=== PATIENT | female | born 1965 | race Caucasian/White ===

== ENCOUNTER 2021-04-19 17:45 | Outpatient (CLI) | payer OTHER, SELFPAY ==
[2021-04-19 18:15] LABS: Basophils Absolute Auto 0.07 K/mm3 (0.00-0.10); Basophils Percent Auto 0.6 % (0.0-1.0); Eosinophils Absolute Auto 0.35 K/mm3 (0.02-0.50); Eosinophils Percent Auto 2.8 % (1.0-6.0); Hematocrit 41.3 % (35.0-49.0); Immature Granulocyte Absolute 0.06 K/mm3 (0.00-0.00); Immature Granulocyte Percent A 0.5 % (0.0-0.0); Lymphocytes Absolute Auto 2.54 K/mm3 (1.10-4.50); Lymphocytes Percent Auto 20.7 % (18.0-42.0); Mean Corpuscular HGB Conc 31.5 g/dL (32.0-36.0); Mean Corpuscular Hemoglobin 30.4 pg (27.0-31.0); Mean Corpuscular Volume 96.5 fL (78.0-102.0); Mean Platelet Volume 10.6 fl (9.2-11.8); Monocytes Absolute Auto 0.68 K/mm3 (0.10-0.90); Monocytes Percent Auto 5.5 % (2.0-11.0); Neutrophils Absolute Auto 8.6 K/mm3 (1.7-7.2); Neutrophils Percent Auto 69.9 % (50.0-70.0); Platelet Count Result 234 K/mm3 (150-420); Red Blood Count 4.28 M/mm3 (4.20-5.40); Red Cell Distribution Width 14.1 % (11.6-14.4); White Blood Count 12.3 K/mm3 (4.8-10.8)
--- NOTE | 2021-04-19 18:28 | ECG_ITS ---
Measurements Intervals [place] Rate: 83 P: 57 [place]: 159 QRS: 24 QRSD: 88 T: 45 QT: 367 QTc: 433 Interpretive Statements SINUS RHYTHM NONSPECIFIC T-WAVE ABNORMALITY NO PREVIOUS ECG AVAILABLE FOR COMPARISON Electronically Signed On 04-20-2021 13:15:54 CDT by Jaquelin Jacobsen M.D.
[2021-04-19 18:30] LABS: Add Urine Microscopic? YES; Appearance Urine Clear (Clear); Bilirubin Urine Negative (Negative); Blood Urine Negative (Negative); Color Urine Light Yellow (Yellow); Glucose Urine UA Negative (Negative); Ketones Urine Trace (Negative); Leukocyte Esterase Ur Negative LEU/UL (Negative); Nitrate Urine Negative (Negative); Protein Urine Negative (Negative)
[2021-04-19 18:37] LABS: Amorphous Sediment Urine Few; RBC Urine 0-2 /hpf (0-2); Squamous Epithelial Cell Urine Few /hpf (Few); WBC Urine 0-3 /hpf (0-3)
[2021-04-19 18:38] LABS: Bacteria Urine 1+ /hpf
[2021-04-19 19:05] LABS: Alanine Aminotransferase 24 U/L (14-59); Albumin Level 3.4 g/dL (3.4-5.0); Alkaline Phosphatase 106 U/L (46-116); Anion Gap 9 mmol/L (8-16); Aspartate Amino Transferase 13 U/L (15-37); Bilirubin,Total 0.1 mg/dL (0.00-1.00); Blood Urea Nitrogen 22 mg/dL (7-18); CRP 0.8 mg/dL (0.0-0.9); Calcium 8.8 mg/dL (8.5-10.1); Carbon Dioxide 27 mmol/L (21-32); Chloride 103 mmol/L (98-108); Estimated Glomerular Filt Rate 33; Glucose 116 mg/dL (70-99); Osmolality Calculated 292 mOsm/kg (285-295); Potassium 4.2 mmol/L (3.5-5.1); Sodium 139 mmol/L (136-145); Total Protein 6.7 g/dL (6.4-8.2)
[2021-04-19 19:25] LABS: Erythrocyte Sedimentation Rate 38 mm/hr (0-20)
== END 2021-04-19 17:46 | disposition home or self-care (01) ==
PROVIDERS: PCP Family Medicine
DX: Z01.818 Encounter for other preprocedural examination (principal)
CPT/HCPCS: 36415; 80053; 81001; 85025; 85652; 86140; 93005

== ENCOUNTER 2021-04-25 17:45 | Outpatient (CLI) | payer OTHER, SELFPAY ==
[2021-04-25 18:02] LABS: Basophils Absolute Auto 0.07 K/mm3 (0.00-0.10); Basophils Percent Auto 0.6 % (0.0-1.0); Eosinophils Absolute Auto 0.32 K/mm3 (0.02-0.50); Eosinophils Percent Auto 2.8 % (1.0-6.0); Hematocrit 41.2 % (35.0-49.0); Hemoglobin 13.2 g/dL (12.0-15.0); Immature Granulocyte Absolute 0.03 K/mm3 (0.00-0.00); Immature Granulocyte Percent A 0.3 % (0.0-0.0); Lymphocytes Absolute Auto 3.04 K/mm3 (1.10-4.50); Mean Corpuscular Volume 96.7 fL (78.0-102.0); Mean Platelet Volume 10.1 fl (9.2-11.8); Monocytes Absolute Auto 0.78 K/mm3 (0.10-0.90); Monocytes Percent Auto 6.9 % (2.0-11.0); Neutrophils Percent Auto 62.4 % (50.0-70.0); Platelet Count Result 221 K/mm3 (150-420); Red Blood Count 4.26 M/mm3 (4.20-5.40); Red Cell Distribution Width 14.2 % (11.6-14.4); White Blood Count 11.2 K/mm3 (4.8-10.8)
== END 2021-04-25 17:46 | disposition home or self-care (01) ==
LOC: CHSLAB 17:48
PROVIDERS: PCP Family Medicine
DX: D72.829 Elevated white blood cell count, unspecified (principal)
CPT/HCPCS: 36415; 85025

== ENCOUNTER 2021-07-11 17:50 | Emergency (ER) | payer BC, SELFPAY ==
--- NOTE | 2021-07-11 18:18 | ED.LOWEXIN ---
HPI - Extremity Injury (Lower) General Chief Complaint: Extremity Problem,Nontraumatic Stated Complaint: swelling in LT foot Time Seen by Provider: 07/11/21 18:18 Source: patient Mode of arrival: ambulatory History of Present Illness HPI Narrative: 55-year-old, smoker with a history numbness and tingling of left lower extremity, Fibromyalgia, chronic low back pain status post spinal cord nerve stimulator presents to the ER with -- left lower foot numbness/tingling /swelling. she has had this off and on for months. No relief with Lyrica or gabapentin. -- Left lower foot pain /calf pain worse on walking. -- Patient is having difficulty ambulating. no recent injury. Injury: Left: foot Relieving factors: nothing Exacerbating factors: movement Other symptoms: none Related Data Home Medications Medication Instructions Recorded Confirmed Adult Low Dose Aspirin 81 mg DAILY 07/11/21 07/11/21 Zoloft 100 mg HS 07/11/21 07/11/21 celecoxib 400 mg capsule 1 cap DAILY 07/11/21 07/11/21 lisinopril 07/11/21 metoprolol tartrate 20 mg BID 07/11/21 07/11/21 pantoprazole 07/11/21 Allergies Allergy/AdvReac Type Severity Reaction Status Date / Time No Known Allergies Allergy Verified 07/11/21 18:23 Review of Systems Review of Systems: All systems reviewed & are unremarkable except as noted in HPI and below Constitutional: Constitutional: Reports as per HPI and Reports no additional constitutional complaints Eyes: Eyes: Reports as per HPI and Reports no additional eye complaints ENT: Reports system reviewed and no additional complaints, except as documented and Reports as per HPI Cardiovascular: Cardiovascular: Reports as per HPI and Reports no additional cardiovascular complaints Respiratory: Respiratory: Reports as per HPI and Reports no additional respiratory complaints Gastrointestinal: Gastrointestinal: Reports as per HPI and Reports no additional gastrointestinal complaints Genitourinary: Genitourinary: Reports no additional female genitourinary complaints and Reports as per HPI Musculoskeletal: Musculoskeletal: Reports no additional musculoskeletal complaints, Reports as per HPI and Reports back pain Comments: Chronic low back pain status post nerve stimulator Integumentary/Breasts: Skin/Breast: Reports system reviewed and no additional complaints, except as docu and Reports as per HPI Neurologic: Reports system reviewed and no additional complaints, except as documented and Reports as per HPI Psychiatric: Psychiatric: Reports no additional psychiatric complaints and Reports as per HPI Endocrine: Endocrine: Reports no additional endocrine complaints and Reports as per HPI [facility] Social History Social History (Updated 07/11/21 @ 18:49 by Kilo Bhatia MD) Social History: smoker Exam Const: General: healthy appearing and no acute distress Nutritional Appearance: well nourished and obese Orientation/consciousness: patient oriented x3 Limitations: no limitations HENMT: Head: normal to inspection Ears: external ears normal General nose exam: Normal external nose present Face and sinus: normal facial exam Mouth: Yes Normal oral and palatal mucosa present Throat: posterior oropharynx normal Eyes: Conjunctivae: conjunctivae normal Pupils: Equal, round and reactive pupils present EOM: EOMs intact bilaterally Neck: Neck: normal visual inspection, no lymphadenopathy and no meningeal signs Chest: Chest palpation & inspection: normal inspection of the chest Resp: Effort & Inspection: normal respiratory effort Auscultation: clear to auscultation bilaterally Cardio: Rate: regular rate Rhythm: regular rhythm GI: GI Palp: Yes Soft to palpation Other: no tenderness/ rigidity /rebound. : General: Yes bladder normal to palpation Back/Spine/Pelvis: Back: no CVA tenderness Skin: General skin exam: normal color Other: Left leg toes are erythematous and hypersensitive on touching. Do
[2021-07-11 18:33] VITALS: BP 153/86; PULSE 86; RESP 18; TEMP 36.3; O2SAT 97
[2021-07-11 19:11] VITALS: BP 144/85; PULSE 73; RESP 16; TEMP 36.3; O2SAT 95
== END 2021-07-11 19:13 | disposition home or self-care (01) ==
PROVIDERS: Emergency Provider Internal Medicine Critical Care Medicine; PCP Family Medicine
DX: G62.9 Polyneuropathy, unspecified (principal); I73.9 Peripheral vascular disease, unspecified
CPT/HCPCS: 99281

== ENCOUNTER 2021-07-23 21:21 | Emergency (ER) | payer BC, SELFPAY ==
[2021-07-23 21:44] VITALS: BP 148/93; PULSE 102; RESP 20; TEMP 37; O2SAT 96
--- NOTE | 2021-07-23 21:48 | ED.EAR ---
HPI - Ear Problem General Chief complaint: Ear Stated complaint: ear pain/jaw swollen Source: patient Mode of arrival: ambulatory Limitations: no limitations History of Present Illness HPI Narrative: this is a 55-year-old female with some right ear pain was seen at urgent care and started on antibiotics this is last day of her antibiotics and the patient states that she is continuing to have pain and discomfort in her right ear with some sinus congestion and pressure with some history of diabetes currently controlled with diet. Patient has no fever chills no shortness of breath no chest pain patient is edentulous and numbness or gums or sore throat. Complaint: ear pain Location: right ear Duration: constant Severity: moderate Relieving factors: nothing Related Data Home Medications Medication Instructions Recorded Confirmed Adult Low Dose Aspirin 81 mg PO DAILY 07/11/21 07/23/21 Zoloft 100 mg PO HS 07/11/21 07/23/21 lisinopril 20 mg PO DAILY 07/11/21 07/23/21 metoprolol tartrate 20 mg PO BID 07/11/21 07/23/21 pantoprazole 40 mg PO DAILY 07/11/21 07/23/21 amoxicillin 500 mg capsule 1 cap PO TID 07/23/21 07/23/21 Allergies Allergy/AdvReac Type Severity Reaction Status Date / Time No Known Allergies Allergy Verified 07/11/21 18:23 Review of Systems Review of Systems: All systems reviewed & are unremarkable except as noted in HPI and below PMFSH Past Medical History Medical History Diabetes mellitus Hypertension Peripheral neuropathy Social History Social History Social History: smoker Exam Const: General: healthy appearing and no acute distress HENMT: Head: normal to inspection Ears: external ears normal General nose exam: Normal external nose present Other: Right ear pain with redness with sinus congestion and pressure in the right frontal sinus area Eyes: Conjunctivae: conjunctivae normal Pupils: Equal, round and reactive pupils present EOM: EOMs intact bilaterally Neck: Neck: normal visual inspection Chest: Chest palpation & inspection: normal inspection of the chest Resp: Effort & Inspection: normal respiratory effort Auscultation: clear to auscultation bilaterally Cardio: Rate: regular rate Rhythm: regular rhythm GI: Auscultation: normal bowel sounds : General: Yes bladder normal to palpation Back/Spine/Pelvis: Back: no CVA tenderness Cervical Spine: collar present Skin: General skin exam: normal color Rashes: no rashes Neuro: General: patient oriented x3, moves all extremities, no meningeal signs and no focal motor deficits Psych: Mental Status: mental status grossly normal Course Course Emergency Course: patient received a dose of IM ceftriaxone, and antibiotics were sent to the patient's pharmacy. Vital Signs Vital signs: Vital Signs Temperature 37.0 C 07/23/21 21:44 Pulse Rate 102 H 07/23/21 21:44 Respiratory Rate 20 07/23/21 21:44 Blood Pressure 148/93 H 07/23/21 21:44 Pulse Oximetry 96 07/23/21 21:44 Oxygen Delivery Room Air 07/23/21 21:44 Temperature 37.0 C 07/23/21 21:44 Pulse Rate 102 H 07/23/21 21:44 Respiratory Rate 20 07/23/21 21:44 Blood Pressure 148/93 H 07/23/21 21:44 Pulse Oximetry 96 07/23/21 21:44 Oxygen Delivery Room Air 07/23/21 21:44 Medical Decision Making Vital Signs Vital Signs: Vital Signs Temperature 37.0 C 07/23/21 21:44 Pulse Rate 102 H 07/23/21 21:44 Respiratory Rate 20 07/23/21 21:44 Blood Pressure 148/93 H 07/23/21 21:44 Pulse Oximetry 96 07/23/21 21:44 Oxygen Delivery Room Air 07/23/21 21:44 Temperature 37.0 C 07/23/21 21:44 Pulse Rate 102 H 07/23/21 21:44 Respiratory Rate 20 07/23/21 21:44 Blood Pressure 148/93 H 07/23/21 21:44 Pulse Oximetry 96 07/23/21 21:44 Oxygen Delivery Room Air 07/23/21 21:44 Critical Care T
[2021-07-23] MEDS: cefTRIAXone 1 GM, LIDOCAINE HCL 1% LOCAL INJ 2.1 ML IM (22:04)
[2021-07-23] MEDS: KETOROLAC 10 MG TABLET PO (22:08)
[2021-07-23 22:11] VITALS: BP 140/85; PULSE 90; RESP 20; O2SAT 97
== END 2021-07-23 22:25 | disposition home or self-care (01) ==
PROVIDERS: Emergency Provider Emergency Medicine; PCP Family Medicine
DX: H66.90 Otitis media, unspecified, unspecified ear (principal); J01.10 Acute frontal sinusitis, unspecified
CPT/HCPCS: 96372; 99283; A9270; J0696

== ENCOUNTER 2021-10-16 12:48 | Emergency (ER) | payer BC, OTHER, SELFPAY ==
--- NOTE | ~2021-10-16 | XR_ITS ---
XR foot LT min 3V DATE: 10/16/2021 13:46 INDICATION: Pain and numbness of left foot for 3 weeks. TECHNIQUE: 4 views COMPARISON: None FINDINGS: There is osteoarthritis at the tibiotalar joint. There is mild osteoarthritis at the first metatarsophalangeal joint. There is prominent plantar and posterior calcaneal enthesopathy. No fracture or dislocation, periosteal reaction or bone destruction. 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
[2021-10-16 13:10] VITALS: BP 152/90; PULSE 72; RESP 18; TEMP 36.4; O2SAT 98
--- NOTE | 2021-10-16 13:45 | ECG_ITS ---
Measurements Intervals [place] Rate: 66 P: 59 [place]: 155 QRS: 21 QRSD: 86 T: 42 QT: 388 QTc: 407 Interpretive Statements SINUS RHYTHM NORMAL ECG COMPARED TO ECG 04/19/2021 18:28:04 NO SIGNIFICANT CHANGES Electronically Signed On 10-17-2021 7:12:09 CDT by Dano Meza D.O.
[2021-10-16] MEDS: SODIUM CHLORIDE 0.9% IV 500 ML 999 ML IV CONT (13:53)
[2021-10-16] MEDS: KETOROLAC (*BKC) 60 MG/2 ML VIAL IM (13:55)
[2021-10-16] MEDS: ASPIRIN 325 MG ENTERIC TABLET PO (13:56)
[2021-10-16 14:06] LABS: Basophils Absolute Auto 0.11 K/mm3 (0.00-0.10); Eosinophils Absolute Auto 0.51 K/mm3 (0.02-0.50); Eosinophils Percent Auto 4.8 % (1.0-6.0); Hemoglobin 13.2 g/dL (12.0-15.0); Immature Granulocyte Absolute 0.05 K/mm3 (0.00-0.00); Immature Granulocyte Percent A 0.5 % (0.0-0.0); Lymphocytes Absolute Auto 2.92 K/mm3 (1.10-4.50); Lymphocytes Percent Auto 27.7 % (18.0-42.0); Mean Corpuscular HGB Conc 31.4 g/dL (32.0-36.0); Mean Corpuscular Hemoglobin 29.1 pg (27.0-31.0); Mean Corpuscular Volume 92.7 fL (78.0-102.0); Mean Platelet Volume 10.1 fl (9.2-11.8); Monocytes Absolute Auto 0.79 K/mm3 (0.10-0.90); Monocytes Percent Auto 7.5 % (2.0-11.0); Neutrophils Absolute Auto 6.2 K/mm3 (1.7-7.2); Neutrophils Percent Auto 58.5 % (50.0-70.0); Platelet Count Result 224 K/mm3 (150-420); Red Blood Count 4.53 M/mm3 (4.20-5.40); Red Cell Distribution Width 14.8 % (11.6-14.4); White Blood Count 10.5 K/mm3 (4.8-10.8)
[2021-10-16 14:10] VITALS: BP 140/77; PULSE 62; RESP 16; O2SAT 97
[2021-10-16 14:23] LABS: Alanine Aminotransferase 23 U/L (14-59); Albumin Level 3.2 g/dL (3.4-5.0); Alkaline Phosphatase 107 U/L (46-116); Anion Gap 7 mmol/L (8-16); Aspartate Amino Transferase 16 U/L (15-37); Bilirubin,Total 0.3 mg/dL (0.00-1.00); Blood Urea Nitrogen 12 mg/dL (7-18); Calcium 8.9 mg/dL (8.5-10.1); Carbon Dioxide 27 mmol/L (21-32); Chloride 104 mmol/L (98-108); Estimated CRCL calculation 58 ml/min; Estimated Glomerular Filt Rate 52; Glucose 111 mg/dL (70-99); Osmolality Calculated 286 mOsm/kg (285-295); Potassium 3.7 mmol/L (3.5-5.1); Sodium 138 mmol/L (136-145); Total Protein 6.9 g/dL (6.4-8.2)
[2021-10-16 14:28] LABS: Lactic Acid Reflex 0.8 mmol/L (0.4-2.0)
[2021-10-16 15:10] VITALS: BP 148/61; PULSE 88; RESP 18; TEMP 36.1; O2SAT 99
[2021-10-16 16:30] VITALS: BP 136/84; PULSE 68; RESP 14; O2SAT 98
--- NOTE | 2021-10-16 17:23 | ED.LOWEXIN ---
HPI - Extremity Injury (Lower) General Chief Complaint: Extremity Injury, Lower Stated Complaint: L foot pain Time Seen by Provider: 10/16/21 12:52 Source: patient and RN notes reviewed Mode of arrival: ambulatory Limitations: no limitations History of Present Illness MD complaint: other (left great toe discolored with minimal drainage) Onset (ago): week(s) (1) Injury: Left: toes Type of Injury: other (no acute injury) Place: home Severity: moderate Severity scale (1-10): 6 Relieving factors: nothing Exacerbating factors: nothing Associated symptoms: swelling Other symptoms: none Related Data Home Medications Medication Instructions Recorded Confirmed Adult Low Dose Aspirin 81 mg PO DAILY 07/11/21 10/16/21 Zoloft 100 mg PO HS 07/11/21 10/16/21 lisinopril 20 mg PO DAILY 07/11/21 10/16/21 metoprolol tartrate 20 mg PO BID 07/11/21 10/16/21 pantoprazole 40 mg PO DAILY 07/11/21 10/16/21 celecoxib 400 mg capsule 400 mg PO DAILY 10/16/21 10/16/21 gabapentin 300 mg capsule 300 mg PO BID 10/16/21 10/16/21 Allergies Allergy/AdvReac Type Severity Reaction Status Date / Time No Known Allergies Allergy Verified 10/16/21 13:17 Review of Systems Review of Systems: All systems reviewed & are unremarkable except as noted in HPI and below Constitutional: Constitutional: Reports no additional constitutional complaints Eyes: Eyes: Reports no additional eye complaints ENT: Reports system reviewed and no additional complaints, except as documented Cardiovascular: Cardiovascular: Reports no additional cardiovascular complaints Respiratory: Respiratory: Reports no additional respiratory complaints Gastrointestinal: Gastrointestinal: Reports no additional gastrointestinal complaints Genitourinary: Genitourinary: Reports no additional female genitourinary complaints Musculoskeletal: Musculoskeletal: Reports arthralgias Comments: great toe discoloration and swelling Integumentary/Breasts: Skin/Breast: Reports system reviewed and no additional complaints, except as docu Neurologic: Reports system reviewed and no additional complaints, except as documented Psychiatric: Psychiatric: Reports no additional psychiatric complaints Endocrine: Endocrine: Reports no additional endocrine complaints Hematologic/Lymphatic: Hematologic/Lymphatic: Reports no additional hematologic/lymphatic complaints Allergic/Immunologic: Allergic/Immunologic: Reports no additional allergic/immunologic complaints PMFSH Past Medical History Medical History Diabetes mellitus Hypertension Infection of toe Peripheral neuropathy Social History Social History Social History: smoker Exam Const: General: no acute distress Nutritional Appearance: well nourished Orientation/consciousness: patient oriented x3 Limitations: no limitations HENMT: Head: normal to inspection Ears: external ears normal, TM's normal bilaterally and EAC's normal General nose exam: Normal external nose present and Normal nares present Face and sinus: normal facial exam and sinuses nontender Mouth: Yes Normal oral and palatal mucosa present and Yes moist mucous membranes Teeth and gingiva: dentition normal Throat: posterior oropharynx normal Eyes: Conjunctivae: conjunctivae normal Pupils: Equal, round and reactive pupils present EOM: EOMs intact bilaterally Neck: Neck: normal visual inspection, no lymphadenopathy and no meningeal signs Chest: Chest palpation & inspection: normal inspection of the chest Resp: Effort & Inspection: normal respiratory effort Auscultation: clear to auscultation bilaterally Cardio: Rate: regular rate Rhythm: regular rhythm GI: GI Palp: Yes Soft to palpation and No Tenderness to palpation present (GI) Auscultation: normal bowel sounds : General: Yes bladder normal to palpation and Yes no CVA tenderness Bimanual exam- v
[2021-10-16] MEDS: HEPARIN SODIUM 5,000 UNITS/ML VIAL 4000 UNITS IV PUSH (17:34)
[2021-10-16 17:49] LABS: INR 0.9; Partial Thromboplastin Time 29.2 SEC (23.90-30.70); Prothrombin Time 10.3 Seconds (9.50-12.10)
[2021-10-16] MEDS: HEPARIN SOD/D5W 100 UNITS/ML 25,000 UNITS/250 ML BAG 13 UNITS IV CONT (17:55)
[2021-10-16 18:07] VITALS: BP 145/70; PULSE 69; RESP 16; TEMP 36.4; O2SAT 98
== END 2021-10-16 18:45 | disposition short-term general hospital (02) ==
PROVIDERS: Emergency Provider Emergency Medicine; PCP Family Medicine
DX: G62.9 Polyneuropathy, unspecified (principal); R23.0 Cyanosis
CPT/HCPCS: 36415; 73630; 80053; 83605; 85025; 85610; 85730; 93005; 96365; 96367; 96372; 99285; A9270; J0696; J1644; J1885; J7040

== ENCOUNTER 2022-07-27 09:03 | Emergency (ER) | payer BC, SELFPAY ==
--- NOTE | ~2022-07-27 | US_ITS ---
EXAMINATION:US venous doppler LE RT INDICATION:Status post right femoral-popliteal bypass 6 days ago. Right leg redness, warmth and swell ing. TECHNIQUE: Multiple grayscale, color flow and Doppler images of the right lower extremity deep venous systems were obtained and reviewed. COMPARISON:No prior studies for comparison. FINDINGS: The common femoral, superficial femoral and popliteal veins demonstrate normal respiratory variation, augmentation and compressibility. Color flow is also seen within the posterior tibial, pe roneal, greater saphenous and profunda veins. Mildly prominent lymph nodes of the right groin, larges t measuring 2.2 cm, likely reactive. IMPRESSION: 1: No lower extremity deep venous thrombosis. Reviewed, dictated and finalized at location L.
[2022-07-27 09:04] VITALS: BP 158/73; PULSE 106; TEMP 36.4; O2SAT 97
[2022-07-27 09:49] LABS: Basophils Absolute Auto 0.08 K/mm3 (0.00-0.10); Basophils Percent Auto 0.9 % (0.0-1.0); Eosinophils Absolute Auto 0.43 K/mm3 (0.02-0.50); Eosinophils Percent Auto 4.7 % (1.0-6.0); Hematocrit 33.8 % (35.0-49.0); Hemoglobin 10.3 g/dL (12.0-15.0); Immature Granulocyte Absolute 0.14 K/mm3 (0.00-0.00); Immature Granulocyte Percent A 1.5 % (0.0-0.0); Lymphocytes Absolute Auto 1.16 K/mm3 (1.10-4.50); Lymphocytes Percent Auto 12.8 % (18.0-42.0); Mean Corpuscular HGB Conc 30.5 g/dL (32.0-36.0); Mean Corpuscular Hemoglobin 28.9 pg (27.0-31.0); Mean Corpuscular Volume 94.9 fL (78.0-102.0); Mean Platelet Volume 10.2 fl (9.2-11.8); Monocytes Absolute Auto 0.67 K/mm3 (0.10-0.90); Monocytes Percent Auto 7.4 % (2.0-11.0); Neutrophils Absolute Auto 6.6 K/mm3 (1.7-7.2); Neutrophils Percent Auto 72.7 % (50.0-70.0); Platelet Count Result 265 K/mm3 (150-420); Red Blood Count 3.56 M/mm3 (4.20-5.40); Red Cell Distribution Width 14.5 % (11.6-14.4); White Blood Count 9.1 K/mm3 (4.8-10.8)
[2022-07-27 10:04] LABS: INR 0.9; Partial Thromboplastin Time 29.6 SEC (23.90-30.70); Prothrombin Time 9.7 Seconds (9.50-12.10)
[2022-07-27 10:05] LABS: Alanine Aminotransferase 47 U/L (14-59); Albumin Level 2.6 g/dL (3.4-5.0); Alkaline Phosphatase 162 U/L (46-116); Anion Gap 10 mmol/L (8-16); Aspartate Amino Transferase 47 U/L (15-37); Bilirubin,Total 0.3 mg/dL (0.00-1.00); Blood Urea Nitrogen 15 mg/dL (7-18); CRP 7.9 mg/dL (0.0-0.9); Calcium 8.8 mg/dL (8.5-10.1); Carbon Dioxide 25 mmol/L (21-32); Chloride 104 mmol/L (98-108); Estimated CRCL calculation 44 ml/min; Estimated Glomerular Filt Rate 60; Glucose 112 mg/dL (70-99); Osmolality Calculated 289 mOsm/kg (285-295); Potassium 4.3 mmol/L (3.5-5.1); Sodium 139 mmol/L (136-145); Total Protein 6.8 g/dL (6.4-8.2)
[2022-07-27 10:10] LABS: Lactic Acid Reflex 1.2 mmol/L (0.4-2.0)
[2022-07-27] MEDS: SODIUM CHLORIDE 0.9% IV 1,000 ML 999 ML IV CONT (10:20)
--- NOTE | 2022-07-27 10:21 | ED.SKABFB ---
HPI - Skin/Abscess/Foreign Bdy General Chief complaint: Skin/Abscess/Foreign Body Stated complaint: possible leg infection Time Seen by Provider: 07/27/22 09:23 Source: patient Mode of arrival: ambulatory Limitations: no limitations History of Present Illness HPI narrative: this is 48-year-old female that presents with a warm red right lower extremity, the patient is status post arterial bypass surgery of right lower extremity has that was performed this past Sunday currently has low-grade fever has some redness and some mild drainage to her right lower extremity at the wound site and stable site patient otherwise pain level is well controlled. There is some warmth and tenderness of the right lower extremity at the surgical site, the patient called her vascular surgeon and was instructed to go to the near nearest emergency department for evaluation. Patient denies any chest pain no shortness of breath as good peripheral pulses on the right the area in the mid surgical site has an area of redness and warmth to touch, the patient currently is on Bactrim DS. Onset (ago): day(s) Location: [facility] Severity: mild Severity scale (1-10): 4 Quality: constant Pain Consistency: constant Related Data Home Medications Medication Instructions Recorded Confirmed Adult Low Dose Aspirin 81 mg PO DAILY 07/11/21 07/27/22 Zoloft 100 mg PO HS 07/11/21 07/27/22 lisinopril 20 mg PO DAILY 07/11/21 07/27/22 metoprolol tartrate 20 mg PO BID 07/11/21 07/27/22 pantoprazole 40 mg PO DAILY 07/11/21 07/27/22 atorvastatin 80 mg tablet 80 mg PO DAILY 07/27/22 07/27/22 clopidogrel 75 mg tablet 75 mg PO BID 07/27/22 07/27/22 cyanocobalamin (vitamin B-12) 1,000 mcg IM MONTHLY 07/27/22 07/27/22 1,000 mcg/mL injection solution docusate sodium 100 mg capsule 100 mg PO DAILY 07/27/22 07/27/22 (Colace) lorazepam 0.5 mg tablet 0.5 mg PO BID 07/27/22 07/27/22 nicotine 21 mg/24 hr daily 21 mg topical DAILY 07/27/22 07/27/22 transdermal patch oxycodone 5 mg tablet 5 mg PO Q6-8H PRN Pain 07/27/22 07/27/22 pentoxifylline 400 mg 400 mg PO BID 07/27/22 07/27/22 tablet,extended release sulfamethoxazole 800 1 tablet PO BID 07/27/22 07/27/22 mg-trimethoprim 160 mg tablet Allergies Allergy/AdvReac Type Severity Reaction Status Date / Time No Known Allergies Allergy Verified 07/27/22 09:33 Review of Systems Review of Systems: All systems reviewed & are unremarkable except as noted in HPI and below PMFSH Past Medical History Medical History Diabetes mellitus Hypertension Infection of toe Peripheral neuropathy Social History Social History Social History: smoker Exam Const: General: healthy appearing Nutritional Appearance: well nourished Limitations: no limitations HENMT: Head: normal to inspection Eyes: Conjunctivae: conjunctivae normal Neck: Neck: normal visual inspection Chest: Chest palpation & inspection: normal inspection of the chest Resp: Effort & Inspection: normal respiratory effort Cardio: Rate: regular rate Rhythm: regular rhythm GI: Auscultation: normal bowel sounds Skin: Wounds: wounds noted Other: Has rigoberto in place in the right lower extremity there is an area around the mid thigh that is warm and tender to touch has good pulses on the right femoral and pedal pulses are intact. Neuro: General: patient oriented x3 Psych: Mental Status: mental status grossly normal Affect: normal affect Course Course Emergency Course: Patient currently afebrile, had blood work performed which shows a white count of 9.8, performed a venous Doppler ultrasound which shows no venous clot and shows a patent artery with no occlusion at the surgery site. Lactic acid was within normal range patient did receive a dose of IV ceftriaxone and and a dose of IV Tylenol this was all reviewed with patient and advise that we
[2022-07-27 11:00] VITALS: BP 135/60; PULSE 79; RESP 16; TEMP 36.4; O2SAT 99
== END 2022-07-27 11:31 | disposition home or self-care (01) ==
LOC: CHSED 10:30
PROVIDERS: Emergency Provider Emergency Medicine; PCP Family Medicine
DX: L03.115 Cellulitis of right lower limb (principal); E11.9 Type 2 diabetes mellitus without complications; I10 Essential (primary) hypertension; F17.200 Nicotine dependence, unspecified, uncomplicated; Z79.82 Long term (current) use of aspirin; Z79.891 Long term (current) use of opiate analgesic
CPT/HCPCS: 36415; 80053; 83605; 85025; 85610; 85730; 86140; 93971; 96365; 96375; 99284; J0131; J0696; J7030

== ENCOUNTER 2023-11-27 16:46 | Emergency (ER) | payer BC, SELFPAY ==
[2023-11-27 16:46] VITALS: BP 165/88; PULSE 104; RESP 18; TEMP 36.3; O2SAT 98
--- NOTE | 2023-11-27 17:00 | ED.GENADULT ---
HPI - General Adult General Chief complaint: Environmental Exposure Stated complaint: EXPOSURE Time Seen by Provider: 11/27/23 16:51 Source: patient Mode of arrival: ambulatory Limitations: no limitations History of Present Illness HPI narrative: 58 YEARS OLD WHITE FEMALE DROVE HERSELF TO THE EMERGENCY ROOM COMPLAINING OF NAUSEA AND HEADACHE FOR THE LAST 2 WEEKS, YESTERDAY MORNING THE [employer] FOUND A GAS LEAK AT HER TRAILER AND WAS SHOT OF AT THAT TIME. PATIENT REFERRED TO OUR EMERGENCY ROOM BY HER FAMILY PHYSICIAN FOR EVALUATION. SHE DENIES ANY FEVER, CHILLS, SHORTNESS BREAST OR CHEST PAIN. PATIENT CURRENTLY ON LEVAQUIN FOR SINUS INFECTION, PATIENT SMOKED 1 PACK OF CIGARETTE A, HISTORY OF DIABETES, HYPERTENSION, HYPERLIPIDEMIA, DEPRESSION, ACID REFLUX CURRENTLY ON ASPIRIN AND PLAVIX. PATIENT IS TELLING ME THAT WAS SEEN BY HER FAMILY PHYSICIAN FOR BLOOD WORKUP CHECK ,1 WEEK AGO PATIENT LIVES WITH HIS GRANDSON WHO IS ASYMPTOMATIC Related Data Home Medications Medication Instructions Recorded Confirmed Adult Low Dose Aspirin 81 mg PO DAILY 07/11/21 11/27/23 Zoloft 100 mg PO HS 07/11/21 11/27/23 lisinopril 20 mg PO DAILY 07/11/21 11/27/23 metoprolol tartrate 20 mg PO BID 07/11/21 11/27/23 pantoprazole 40 mg PO DAILY 07/11/21 11/27/23 atorvastatin 80 mg tablet 80 mg PO DAILY 07/27/22 11/27/23 clopidogrel 75 mg tablet 75 mg PO BID 07/27/22 11/27/23 cyanocobalamin (vitamin B-12) 1,000 mcg IM MONTHLY 07/27/22 11/27/23 1,000 mcg/mL injection solution docusate sodium 100 mg capsule 100 mg PO DAILY 07/27/22 11/27/23 (Colace) lorazepam 0.5 mg tablet 0.5 mg PO BID 07/27/22 11/27/23 nicotine 21 mg/24 hr daily 21 mg topical DAILY 07/27/22 11/27/23 transdermal patch oxycodone 5 mg tablet 5 mg PO Q6-8H PRN Pain 07/27/22 11/27/23 pentoxifylline 400 mg 400 mg PO BID 07/27/22 11/27/23 tablet,extended release Allergies Allergy/AdvReac Type Severity Reaction Status Date / Time No Known Allergies Allergy Verified 11/27/23 16:50 Review of Systems Review of Systems: All systems reviewed & are unremarkable except as noted in HPI and below PMFSH Past Medical History Medical History Diabetes mellitus Hypertension Infection of toe Peripheral neuropathy Social History Social History Social History: smoker Exam Narrative: GENERAL APPEARANCE: WELL-DEVELOPED, WELL-NOURISHED, PATIENT DOES NOT LOOK IN PAIN OR DISTRESS SKIN: NORMAL COLOR HEAD: NORMOCEPHALIC, NONTRAUMATIC EYES: CLEAR CONJUNCTIVA ENT: OROPHARYNX NORMAL, EARS NORMAL, NOSE NORMAL NECK: SUPPLE, NONTENDER CHEST AND RESPIRATORY: AIRWAY PATENT, NO RESPIRATORY DISTRESS, NO ACCESSORY MUSCLE USE, FEW SCATTERED RHONCHI BILATERALLY HEART: REGULAR RATE/RHYTHM ABDOMEN: SOFT, NONTENDER, NO ORGANOMEGALY, QUIET BOWEL SOUNDS VASCULAR: NORMAL PERIPHERAL PULSES, NORMAL CAPILLARY REFILL. MUSCULOSKELETAL: NORMAL RANGE OF MOTION, NONTENDER BACK NEUROLOGIC: ALERT AND ORIENTED ?3, BALANCE SHEET ANALYST IS NORMAL TESTED, NO GROSS MOTOR DEFICIT Course Vital Signs Vital signs: Vital Signs Temperature 36.3 C L 11/27/23 16:46 Pulse Rate 104 H 11/27/23 16:46 Respiratory Rate 18 11/27/23 16:46 Blood Pressure 165/88 H 11/27/23 16:46 Pulse Oximetry 98 11/27/23 16:46 Oxygen Delivery Room Air 11/27/23 16:46 Temperature 36.3 C L 11/27/23 16:46 Pulse Rate 104 H 11/27/23 16:46 Respiratory Rate 18 11/27/23 16:46 Blood Pressure 165/88 H 11/27/23 16:46 Pulse Oximetry 100 11/27/23 17:23 Oxygen Delivery Room Air 11/27/23 17:23 Medical Decision Making [facility] Narrativ
[2023-11-27 17:08] LABS: Base Excess ABG 0.1 mmol/L (0-2); Carboxyhemoglobin 3.7 % (0-1.5); HCO3 ABG 23.4 mmol/L (23-29); Methemoglobin ABG 0.3 % (0-1.5); Oxygen Content ABG 17.6 %vol (16.0-22.0); Oxygen Saturation ABG 96.8 % (95-97); Oxyhemoglobin 92.9 % (94-100); PCO2 ABG 34.1 mmHg (35-45); PO2 ABG 91.5 mmHg (80-90); Reduced Hemoglobin 3.1 % (0-1.5); pH ABG 7.46 (7.35-7.45)
[2023-11-27 17:11] LABS: Device ROOM AIR; Modified Allen's Test Pass; Site Drawn RIGHT RADIAL
[2023-11-27 17:23] VITALS: O2SAT 100
[2023-11-27] MEDS: ONDANSETRON HCL ODT 4 MG TABLET PO (17:41)
[2023-11-27 17:48] VITALS: BP 166/74; PULSE 92; RESP 17; TEMP 36.8; O2SAT 97
== END 2023-11-27 17:48 | disposition home or self-care (01) ==
PROVIDERS: Emergency Provider Emergency Medicine; PCP Family Medicine
DX: T58.11XA Toxic effect of carbon monoxide from utility gas, accidental (unintentional), initial encounter (principal); R11.0 Nausea; R51.9 Headache, unspecified; E11.9 Type 2 diabetes mellitus without complications; I10 Essential (primary) hypertension; E78.5 Hyperlipidemia, unspecified; F17.210 Nicotine dependence, cigarettes, uncomplicated; Z79.01 Long term (current) use of anticoagulants; Z79.82 Long term (current) use of aspirin; Z79.891 Long term (current) use of opiate analgesic; Z79.899 Other long term (current) drug therapy
CPT/HCPCS: 36600; 82375; 82805; 83050; 85018; 99283; A9270

== ENCOUNTER 2024-05-17 11:17 | Emergency (ER) | payer BC, SELFPAY ==
--- NOTE | ~2024-05-17 | CT_ITS ---
EXAM: CT abdomen pelvis w con - 05/17/2024 12:43 CDT History: 58 years old Female with Onset this AM, Lower abdominal pain/ vaginal bleeding TECHNIQUE: Multidetector CT of the abdomen and pelvis with intravenous contrast. Coronal and sagitta l reformats were also provided for review. Automatic exposure control was used for this study. CONTRAST: 100 cc of Optiray 350 was used for this study. COMPARISON: None Available. FINDINGS: VISUALIZED CHEST: Mosaic attenuation of the lungs, likely obstructive small airway disease. ABDOMEN and PELVIS: LIVER: Within normal limits. GALLBLADDER: Postcholecystectomy. BILE DUCTS: No dilatation. SPLEEN: Multiple calcified granulomas are seen in the spleen. PANCREAS: Within normal limits. ADRENAL GLANDS: Symmetric thickening of bilateral reduction of glands. KIDNEYS and URETERS: No hydronephrosis or hydroureter. No nephroureterolithiasis. URINARY BLADDER: Apparent diffuse wall thickening of the urinary bladder may be related to underdiste ntion. STOMACH and BOWEL: No abnormal bowel wall thickening. No obstruction. REPRODUCTIVE ORGANS: Status post hysterectomy. Linear hyperdensity density in the dilated vagina cuff with mucosal hyperenhancement. MESENTERY/PERITONEAL CAVITY: No free fluid or pneumoperitoneum. LYMPH NODES: No abdominal or pelvic lymphadenopathy. ABDOMINAL WALL: Spinal stimulator battery seen. Postsurgical changes are seen in the anterior abdomin al wall and the pelvis. VASCULATURE: Within normal limits. Stent in the right common femoral artery. MUSCULOSKELETAL: Multilevel degenerative changes of the spine. IMPRESSION: 1. Linear hyperdensity density in the dilated vagina cuff with mucosal hyperenhancement. This is non specific and may represent retained foreign object, active bleeding versus active infection. Clinical correlation is recommended. 2. Apparent diffuse wall thickening of the urinary bladder may be related to underdistention. Correl ate with urinalysis to rule out possible acute cholecystitis. Reviewed, dictated and finalized at location A. IMPRESSION: 1. Linear hyperdensity density in the dilated vagina cuff with mucosal hyperen hancement. This is nonspecific and may represent retained foreign object, activ e bleeding versus active infection. Clinical correlation is recommended. 2. Apparent diffuse wall thickening of the urinary bladder may be related to u nderdistention. Correlate with urinalysis to rule out possible acute cholecysti tis.
[2024-05-17 11:18] VITALS: BP 151/85; PULSE 119; RESP 16; TEMP 36.7; O2SAT 99
--- NOTE | 2024-05-17 11:20 | ED.ABDPAIN ---
HPI - Abdominal Pain General Chief Complaint: Vaginal Bleeding Stated Complaint: vaginal bleeding Time Seen by Provider: 05/17/24 11:19 Source: patient Mode of arrival: ambulatory Limitations: no limitations History of Present Illness HPI narrative: 60-year-old obese white female stated last night she had sex round 10:00 p.m. and then at 12 midnight 2 hours later she started having some lower abdominal cramping and vaginal bleeding which continued through the night and this morning she had clots of blood. She rates her cramping pain of 7-8 of 10 right now it is a 7. It has been continuous all night. Denies any other bleeding or any other pain. She had some vomiting that she attributes to Ozempic. Otherwise she is voiding fine she had a normal bowel movement this morning brown well-formed. Denies any diarrhea denies any dizziness cough fever sore throat runny nose problems walking talking seeing or hearing. Patient states she had a hysterectomy at age 33 for excessive bleeding she had all her everything removed . Denies any foreign body insertion into the vagina or any trauma. She is on baby aspirin Plavix. Deny rash or itching. She says the bruise on the left side of her neck is a Hickey from last night. Denies any other complaints. Related Data Home Medications ?Medication ?Instructions ?Recorded ?Confirmed ?Last Taken ?Type Adult Low Dose Aspirin 81 mg PO DAILY 07/11/21 11/27/23 Unknown History Zoloft 100 mg PO HS 07/11/21 11/27/23 Unknown History lisinopril 20 mg PO DAILY 07/11/21 11/27/23 Unknown History metoprolol tartrate 20 mg PO BID 07/11/21 11/27/23 Unknown History pantoprazole 40 mg PO DAILY 07/11/21 11/27/23 Unknown History atorvastatin 80 mg tablet 80 mg PO DAILY 07/27/22 11/27/23 Unknown History clopidogrel 75 mg tablet 75 mg PO BID 07/27/22 11/27/23 Unknown History cyanocobalamin (vitamin B-12) 1,000 mcg IM MONTHLY 07/27/22 11/27/23 Unknown History 1,000 mcg/mL injection solution docusate sodium 100 mg capsule 100 mg PO DAILY 07/27/22 11/27/23 Unknown History (Colace) lorazepam 0.5 mg tablet 0.5 mg PO BID 07/27/22 11/27/23 Unknown History nicotine 21 mg/24 hr daily 21 mg topical DAILY 07/27/22 11/27/23 Unknown History transdermal patch oxycodone 5 mg tablet 5 mg PO Q6-8H PRN Pain 07/27/22 11/27/23 Unknown History pentoxifylline 400 mg 400 mg PO BID 07/27/22 11/27/23 Unknown History tablet,extended release Allergies Allergy/AdvReac Type Severity Reaction Status Date / Time No Known Allergies Allergy Verified 05/17/24 11:20 Review of Systems Review of Systems: All systems reviewed & are unremarkable except as noted in HPI and below PMFSH Past Medical History Medical History Infection of toe Peripheral neuropathy Hypertension Diabetes mellitus Social History Social History Social History: smoker Comments Bypass her lower extremities. Hysterectomy cholecystectomy 2 C sections Exam Narrative: White female patient with no apparent distress.? Head normocephalic, atraumatic.? Eyes conjunctiva pink sclera nonicteric.? Extraocular movements are intact.? Ears externally normal.? ?Oropharynx is clear with moist mucous membranes without exudates.? Neck is supple nontender no lymphadenopathy.? Back is nontender.? Lungs are clear.? Heart is regular rate and rhythm without murmurs gallops or rubs.? Chest wall nontender. Abdomen is soft and nontender no hepatosplenomegaly or masses no CVA tenderness no abdominal bruits.? Extremities no cyanosis clubbing or edema.? Skin is warm and dry without rashes or lesions.? Neurological patient is alert and oriented x4.? Motor and sensory grossly intact.? Gait is normal. Course Vital Signs Vital signs: Vital Signs Temperature 36.7 C 05/17/24 11:18 Pulse Rate 119 H 05/17/24 11:18 Respiratory Rate 16 05/17/24 11:18 Blood Pressure 151/85 H 05/17/24 11:18 Pulse Oximetry 99 05/17/24 11:18 Oxygen Delivery Room Air 05/17/24 11:18 Temperature 36.7 C 05/17/24 11:18 Pulse Rate 125 H 05/17/24 12:04 Respiratory Rate 16 05/17/24 11:18 Blood Pressure 116/69 04/12/25 12:04 Pulse Oximetry 99 05/17/24 11:18 Oxygen Delivery Room Air 05/17/24 11:18 MDM - Abdominal Pain MDM Narrative Medical decision making narrative: Patient was placed in Room # History and physical was performed. WBCs 18.5, hemoglobin 11.4 hematocrit was normal at 36.9, platelets are normal.? Coags normal. Creatinine 1.14 GFR 49, alk phos 158, albumin 3.1 rest of CMP was normal.? Urinalysis was negative. CT abdomen pelvis: Independent Historian: Patient External Source Review: Differential Dx includes but not limited to: Vaginal atrophy vaginal cancer endometriosis of the vaginal vault gentle urinary fistula coagulopathies. Medications were Reviewed: Independently Interpreted by me: labs independently interpreted by me. Meds, treatment, ED course: Normal saline at 125 cc/hour Social Situation Impacting Patients Care: Shared decision Making: evaluation was discussed with the patient all questions were asked and answered she agreed with the plan. Discussed with Dr. Les Sheth reimbursement consultant at [facility]. Patient was see her there at [facility] ED. Patient will be going by ground ambulance. Dr. Sheth told the stock supervisor over there that she thought this patient was in their emergency room at [facility]. Dr. Sheth does not think this is an emergency and does not necessitate her being transferred at this time. In which case she want the patient to get estradiol cream 1 g daily and to follow-up with her office next week she was to return to [facility] ER if she had more than 2 Kotex soaked per hour she was not put anything in her vagina and do no heavy lifting. DISCHARGE DIAGNOSIS: vaginal bleeding, possible vaginal laceration with ongoing bleeding DISPOSITION: Discharge home CONDITION AT DISCHARGE: stable Lab Data 05/17/24 11:52 05/17/24 11:52 Labs: Lab Results 05/17/24 Range/Units 11:52 WBC 18.5 H (4.8-10.8) K/mm3 RBC 4.01 L (4.20-5.40) M/mm3 Hgb 11.4 L (12.0-15.0) g/dL Hct 36.9 (35.0-49.0) % MCV 92.0 (78.0-102.0) fL MCH 28.4 (27.0-31.0) pg MCHC 30.9 L (32-36) g/dL RDW 16.6 H (11.6-14.4) % Plt Count 276 (150-420) K/mm3 MPV 10.4 (9.2-11.8) fl Immature Gran % (Auto) 0.8 H (0.0-0.0) % Neut % (Auto) 85.6 H (50.0-70.0) % Lymph % (Auto) 7.6 L (18.0-42.0) % Quay % (Auto) 5.1 (2.0-11.0) % Eos % (Auto) 0.5 L (1.0-6.0) % Baso % (Auto) 0.4 (0.0-1.0) % Lymph # (Auto) 1.40 (1.10-4.50) K/mm3 Quay # (Auto) 0.94 H (0.10-0.90) K/mm3 Eos # (Auto) 0.09 (0.02-0.50) K/mm3 Baso # (Auto) 0.07 (0.00-0.10) K/mm3 Abs Immat Gran (auto) 0.14 H (0.00-0.00) K/mm3 Absolute Neuts (auto) 15.86 H (1.70-7.20) K/mm3 Absolute Nucleated RBC 0.00 (0.00-0.00) K/mm3 Nucleated RBC % 0.0 (0-0.0) % PT 10.3 (9.50-12.1) Seconds INR 0.9 APTT 25.4 (23.9-30.70) Sec Sodium 141 (136-145) mmol/L Potassium 3.6 (3.5-5.1) mmol/L Chloride 105 (98-108) mmol/L Carbon Dioxide 28 (21-32) mmol/L Anion Gap 8 (4-12) mmol/L BUN 14 (7-18) mg/dL Creatinine 1.14 H (0.55-1.02) mg/dL Estim Creat Clear Calc 51 ml/min Estimated GFR 49 L (59 - ) Glucose 128 H (70-99) mg/dL Calculated Osmolality 294 (285-295) mOsm/kg Calcium 8.8 (8.5-10.1) mg/dL Total Bilirubin 0.4 (0.00-1.00) mg/dL AST 35 (15-37) U/L ALT 34 (14-59) U/L Alkaline Phosphatase 158 H (46-116) U/L Total Protein 7.1 (6.4-8.2) g/dL Albumin 3.1 L (3.4-5.0) g/dL Urine Color Yellow (Yellow) Urine Appearance Clear (Clear) Urine pH 6.0 (5.0-8.0) Ur Specific [place] 1.025 H (1.010-1.020) Urine Protein 1+ H (Negative) Urine Glucose (UA) Negative (Negative) Urine Ketones Negative (Negative) Ur Blood (Man) Negative (Negative) Urine Nitrate Negative (Negative) Urine Bilirubin Negative (Negative) Urine Urobilinogen 0.2 (0.2-1.0) mg/dL Leukocyte Esterase Rfl Negative (Negative) ZEN/UL Urine RBC None seen (0-2) /hpf Urine WBC 0-3 (0-3) /hpf Ur Squamous Epith Cells Few (Few) /hpf Urine Bacteria None seen (None) /hpf Ur Oval Fat Bodies None (None) /lpf Imaging Data Radiologist's impression: ITS Impressions Abdomen/Pelvis CT 05/17/24 12:58 IMPRESSION: 1. Linear hyperdensity density in the dilated vagina cuff with mucosal hyperenhancement. This is nonspecific and may represent retained foreign object, active bleeding versus active infection. Clinical correlation is recommended. 2. Apparent diffuse wall thickening of the urinary bladder may be related to underdistention. Correlate with urinalysis to rule out possible acute cholecystitis. Discharge Plan Discharge Clinical Impression: Abnormal vaginal bleeding Patient Disposition: Home Condition: Stable Instructions: Laceration (ED) Additional Instructions: no heavy lifting More than 5 lb. go to [facility] Emergency Department if you soak through 2 Or more tampons in 1 hour. ill emergency room there if you get dizzy or you have increasing bleeding problems. If you feel like you cannot drive herself and you should call an ambulance to get to transfer there. No intercourse nothing in her vagina except for estradiol 1 g intravaginally daily. Call Dr. Esther Sheth office on Sunday to get a follow-up appointment for next week. hold your baby aspirin in your clopidogrel until you see the reimbursement consultant Dr. Esther Sheth. increase her fluids by mouth the next 3 days. Patient Language: Faroese Prescriptions: New estradiol 0.01 % (0.1 mg/gram) cream 1 appful vaginal DAILY Qty: 42.5 0RF Rx Instructions: for 14 days No Action Adult Low Dose Aspirin 81 mg 81 mg PO DAILY Zoloft 100 mg 100 mg PO HS lisinopril 20 mg 20 mg PO DAILY pantoprazole 40 mg 40 mg PO DAILY metoprolol tartrate 20 mg 20 mg PO BID atorvastatin 80 mg tablet 80 mg PO DAILY clopidogrel 75 mg tablet 75 mg PO BID pentoxifylline 400 mg tablet extended release 400 mg PO BID lorazepam 0.5 mg tablet 0.5 mg PO BID cyanocobalamin (vitamin B-12) 1,000 mcg/mL solution 1,000 mcg IM MONTHLY nicotine 21 mg/24 hr patch 24 hour 21 mg topical DAILY docusate sodium [Colace] 100 mg Capsule 100 mg PO DAILY oxycodone 5 mg tablet 5 mg PO Q6-8H PRN (Reason: Pain) ondansetron HCl 4 mg tablet 4 mg PO Q4H Qty: 10 0RF Rx Instructions: 1st dose 1-2 hr before radiation Follow-up/Referrals: Dr. Les Sheth [Other] ( follow-up SundayMay 19 to get a follow-up appointment this coming week For your vaginal bleeding with Dr. Esther Sheth.) Patricia,Kate Angeles MD [Primary Care Provider] - Time of Disposition: 13:33
--- OUTSIDE RECORDS SUMMARY | 2024-05-17 11:20 | XMS_ITS | Clinical Summary ---
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 Active lisinopril (PRINIVIL, ZESTRIL) 2.5 MG Tablet Take 2.5 mg by mouth daily. Active oxyCODONE (ROXICODONE) 5 MG Tablet Take 5 mg by mouth every 6 hours as needed for Moderate or more severe pain. Active atorvastatin (LIPITOR) 80 MG Tablet Take 80 mg by mouth nightly. Active gabapentin (NEURONTIN) 300 MG Capsule Take 300 mg by mouth 3 times daily. Active aspirin EC (Aspirin 81) 81 MG Tablet Delayed Response Take 81 mg by mouth daily. Active celecoxib (CeleBREX) 200 MG Capsule Take 400 mg by mouth daily. Active LORazepam (ATIVAN) 0.5 MG Tablet Take 0.5 mg by mouth 2 times daily as needed for Anxiety. Active pantoprazole (PROTONIX) 40 MG Tablet Delayed Response Take 40 mg by mouth daily. Active sertraline (ZOLOFT) 100 MG Tablet Take 100 mg by mouth daily. Active cilostazol (PLETAL) 100 MG Tablet Take 100 mg by mouth 2 times daily. Active Social History Tobacco Use Types Packs/Day Years Used Date Smoking Tobacco: Never Assessed Comments Unknown Sex and Gender Information Value Date Recorded Sex Assigned at Not on file Legal Sex Female 3:35 PM CDT Gender Identity Not on file Sexual Orientation Not on file Last Filed Vital Signs Vital Sign Reading Time Taken Comments Blood Pressure 110/74 11/01/2021 1:20 PM CDT Pulse 68 11/01/2021 1:20 PM CDT Temperature 36.9 C (98.4 F) 11/01/2021 1:20 PM CDT Respiratory Rate 18 11/01/2021 1:20 PM CDT Oxygen Saturation 95% 11/01/2021 1:20 PM CDT room air Inhaled Oxygen Concentration - - Weight 94.8 kg (209 lb) 10/28/2021 10:43 AM CDT Height 165.1 cm (5' 5 ) 11/01/2021 1:20 PM CDT Body Mass Index 34.78 10/28/2021 10:43 AM CDT Plan of Treatment Health Maintenance Due Date Last Done Comments Hepatitis C Virus (HCV) Screening 1965 TdaP Immunization 1965 Colonoscopy 11/04/2008 Colorectal Cancer Screening 11/04/2008 Cologuard 11/04/2013 Immunochemical Fecal Occult Blood 11/04/2013 Zoster Immunization (1 of 2) 11/04/2013 Pneumococcal Immunization (50+ years) (2 of 2 - PPSV23) 03/21/2018 03/21/2017 Influenza Immunization (#1) 10/07/202311/07, 10/16/2019, 11/21/2018, Additional history exists SARS-COV-2 Immunization ( season) 2023 12/05/2020, 04/02/2020, 03/12/2020 Respiratory Syncytial Virus (RSV) Immunization (Adult) (1 - 1-dose 75+ series) 11/04/2038 Pneumococcal Immunization Combined Discontinued 03/21/2017 Hepatitis B Immunization Aged Out No longer eligible based on patient's age to complete this topic Meningococcal Immunization (ACWY) Aged Out No longer eligible based on patient's age to complete this topic Rotavirus Immunization Aged Out No lo nger eligible based on patient's age to complete this topic Advance Directives * Full Code (Latest Code Status on File) Date Activated Date Inactivated Comments 11/08/2021 10:07 AM Care Teams 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
--- OUTSIDE RECORDS SUMMARY | 2024-05-17 11:20 | XMS_ITS | Encounter Summary ---
Author Organization [facility] Address [address] [place] [address] Care Team Providers Care Overedge Sewer Name Role Phone Kirt Acevedo MD Primary Care Provider [phone] Oj Wooten MD Unavailable Reason for Visit * Reason Onset Date Comments MEDICATION REFILL 12/21/2021 Encounter Details Date Type Department Care Team (Late st Contact Info) Description 12/21/2021 Refill [facility] [address] [place] [address], [place] [address] Yohana Lewis MD [address] [place] [address] [place] [address] MEDICATION REFILL Social History Tobacco Use Types Packs/Day Years Used Date Smoking Tobacco: Former Cigarettes Q uit: 10/31/2021 Smokeless Tobacco: Never Comments:smoking since age 1 0, cut down to about 0.5 ppd Alcohol Use Standard Drinks/Week Comments Not Currently 0 (1 standard drink = 0.6 oz pur e alcohol) Comments Unknown Sex and Gender Information Value Date Recorded Sex Assigned at Not on file Legal Sex Female 5:05 PM CDT Gender Identity Not on file Sexual Orientation Not on file documented as of this encounter Functional Status * Is person deaf or have serious hearing difficulty? Answer Date of Assessment Author No 10/17/2021 2:56 AM CDT Vivienne Means RN * Is person blind or have serious difficulty seeing? Answer Date of Assessment Author No 10/17/2021 2:56 AM CDT Vivienne Means RN * Does person have serious difficulty walking/climbing stairs? Answer Date of Assessment Author No 10/17/2021 2:56 AM ULISSEST Vivienne Means RN * Does person have difficulty dressing/bathing? Answer Date of Assessment Author No 10/17/2021 2:56 AM ULISSEST Vivienne Means RN * Does person have difficulty doing errands alone? Answer Date of Assessment Author No 10/17/2021 2:56 AM CDT Vivienne Means RN documented as of this encounter Mental Status * Does person have difficulty concentrating/remembering/making decisions? Answer Entry Date Author No 10/17/2021 2:56 AM Vivienne Pathak RN documented in this encounter Plan of Treatment Not on file documented as of this encounter Visit Diagnoses Not on filedocumented in this encounter Care Teams Overedge Sewer Relationship Specialty Start Date End Date Kirt Acevedo MD [address] [place] [phone] PCP - General Family Medicine 10/16/21 Oj Wooten MD [address] [place] [phone] Criminal Legal Assistant Cardiology 11/14/21 documented as of this encounter
--- OUTSIDE RECORDS SUMMARY | 2024-05-17 11:20 | XMS_ITS | Clinical Summary ---
Author Organization [facility] Address [address] [place] [address] Care Team Providers Care Digital Analyst Name Role Phone Kirt Acevedo MD Primary Care Provider [phone] Oj Wooten MD Unavailable Source Comments [facility],non-owned Affiliates and Associated Physician Practices is amultiple site organization consisting of ambulatory clinics and hospital sitesin [place], [place], [place] and [place]. This disclosure is being madepursuant to the Care Everywhere program and may not contain all information available regarding this patient. Last updated 17.[facility] Allergies No known active allergies Medications * Be aware that medications may not be up to date on this document. Alwaysverify current medications with the patient. sertraline (Zoloft) 100 MG tablet Take 1 (one) tablet by mouth once daily Active pantoprazole EC (Protonix) 40 MG tablet Take 1 (one) tablet by mouth once daily Active LORazepam (Ativan) 0.5 MG tablet Take 1 (one) tablet by mouth 2 times daily as needed for Anxiety 10/12/19 22 Active nicotine (Nicoderm CQ) 21 MG/24HR patch APPLY 1 PATCH TOPICALLY EVERY 24 HOURS 11/09/19 22 Active atorvastatin (Lipitor) 80 MG tablet Take 1 (one) tablet by mouth once daily 01/05/20 22 Active cyanocobalamin (Vitamin B-12) injection INJECT 1 (ONE) MILLILITER INTO MUSCLE ONCE MONTHLY 02/02/20 22 Active lisinopril (Prinivil; Zestril) 2.5 MG tablet Take 1 (one) tablet by mouth once daily 01/04/20 22 Active metoprolol tartrate IR (Lopressor) 25 MG tablet Take 1 (one) tablet by mouth 2 times daily 01/04/20 22 Active pentoxifylline CR (TRENtal) 400 MG tabletIndications :Vascular insufficiency TAKE 1 (ONE) TABLET BY MOUTH 2 TIMES DAILY 180 tablet 05/02/19 23 Active acetaminophen (Tylenol) 500 MG tabletIndications :Lower limb ischemia Take 1 (one) tablet by mouth every 4 hours as needed for Fever or Pain Maximum allowable Acetaminophen amount = 4 Grams (4000 mg) / 24 hours. 07/25/19 23 Active docusate sodium (Colace) 100 MG capsuleIndication s:Lower limb ischemia Take 1 (one) capsule by mouth once daily as needed for Constipation 07/25/19 23 Active clopidogrel (plaVIX) 75 MG tabletIndications :Lower limb ischemia Take 1 (one) tablet by mouth once daily 30 tablet 2 07/26/19 23 Active oxyCODONE, immediate release, (Roxicodone) 5 MG tabletIndications :Acute Pain Take 1 (one) tablet by mouth every 4 hours as needed Reasons: Acute Pain 20 tablet 07/25/19 23 Active amoxicillin-clavu lanate (Augmentin) 500-125 MG tablet Take 1 (one) tablet by mouth every 8 hours 07/28/19 23 Active [facility] Aspirin Adult Low Dose 81 MG chew tablet TAKE 1 TABLET BY MOUTH EVERY DAY 90 tablet 2 04/09/19 24 Active Active Problems Problem Noted Date Diagnosed Date PAD (peripheral artery disease) 11/14/2021 Mixed hyperlipidemia 11/14/2021 Lower limb ischemia 10/20/2021 Prediabetes 10/20/2021 Resolved Problems Problem Noted Date Diagnosed Date Resolved Date Vascular insufficiency 10/16/202111/14 Family History Medical History Relation Name Comments Cancer - Colon Brother Heart Failure Mother Relation Name Status Comments Brother Mother Social History Tobacco Use Types Packs/Day Years Used Date Smoking Tobacco: Former Cigarettes Q uit: 10/31/2021 Smokeless Tobacco: Never Tobacco Cessation:Counseling Given: No Comments:smoking since age 18, cut down to about 0.5 ppd Alcohol Use Standard Drinks/Week Comments Not Currently 0 (1 standard drink = 0.6 oz pur e alcohol) AUDIT-C Answer Date Recorded Q1: How often do you have a drink containing alcohol? Never 07/21/2022 Q2: How many drinks containi ng alcohol do you have on a typical day when you are drinking? Patient does not drink Q3: How often do you have si x or more drinks on one occasion? Never 07/21/2022 Overall Financial Resource Strain (CARDIA) Answe r Date Recorded How hard is it for you to pa y for the very basics like food, housing, medical care, and heating? Somewhat hard 07/22/2022 [facility] - Occupational Stress Questionnaire Answer Date Recorded Do you feel stress - tense, restless, nervous, or anxious, or unable to sleep at night because your mind is troubled all the time - these days? To some extent 07/22/2022 Hunger Vital Sign Answer Date Recorded Within the past 12 months, y ou worried that your food would run out before you got the money to buy more. Never true 07/23/19 23 Within the past 12 months, t he food you bought just didn't last and you didn't have money to get more. Never true 07/22/2022 PRAPARE - Transportation Answer Date Re corded In the past 12 months, has l ack of transportation kept you from medical appointments or from getting medications? No 07/06 In the past 12 months, has l ack of transportation kept you from meetings, work, or from getting things needed for daily living? No 07/22/2022 Housing Stability Vital Sign Answer Adolfo e Recorded In the last 12 months, was t here a time when you were not able to pay the mortgage or rent on time? No 07/22/2022 In the last 12 months, how many places have you lived? 1 07/22/2022 In the last 12 months, was t here a time when you did not have a steady place to sleep or slept in a longterm (including now)? No 07/22/2022 Comments No Sex and Gender Information Value Date Recorded Sex Assigned at Not on file Legal Sex Female 5:05 PM CDT Gender Identity Not on file Sexual Orientation Not on file Last Filed Vital Signs Vital Sign Reading Time Taken Comments Blood Pressure 118/68 08/30/2022 10:17 AM CDT Pulse 82 08/30/2022 10:17 AM CDT Temperature 34.8 C (94.6 F) 08/30/2022 10:17 AM CDT Respiratory Rate 16 07/24/2022 6:15 AM CDT Oxygen Saturation 97% 08/30/2022 10:17 AM CDT Inhaled Oxygen Concentration 40% 07/21/2022 4 :50 PM CDT Weight 93.4 kg (206 lb) 08/30/2022 10:17 AM CDT Height 162.6 cm (5' 4 ) 08/30/2022 10:17 AM CDT Body Mass Index 35.36 08/30/2022 10:17 AM CDT Plan of Treatment Health Maintenance Due Date Last Done Comments COLOGUARD (AGES 45-75) - COLON CA SCREENING 1963 COLON MONITORING 1963 COLONOSCOPY - COLON CA SCREENING 1963 CT COLONOGRAPHY - COLON CA SCREENING 1963 Colorectal Cancer Screening 1963 FIT - COLON CA SCREENING 1963 FLEX SIG - COLON CA SCREENING 1963 MAMMOGRAM 1963 PAP SMEAR 1963 HIV SCREENING 11/04/1978 HEPATITIS C SCREENING 10/31/1981 DTAP/TDAP/TD VACCINES (1 - Tdap) 11/04/1982 PNEUMOCOCCAL VACCINE 50+ (1 of 1 - PCV) 11/04/2013 ZOSTER VACCINE (1 of 2) 11/04/2013 COVID-19 VACCINE (1 - season) 2023 DEPRESSION SCREENING 02/06/2024 INFLUENZA VACCINE (Season Ended) 2024 SCREENING FOR DIABETES 07/24/2025 3, 07/23/2022, 07/22/2022, Additional history exists Respiratory Syncytial Virus (RSV) Vaccine Pt: or over 60 yrs (1 - 1-dose 75+ series) 11/04/2038 HEPATITIS B VACCINE Aged Out No longe r eligible based on patient's age to complete this topic HIB VACCINE Aged Out No longer eligi ble based on patient's age to complete this topic HPV VACCINE Aged Out No longer eligi ble based on patient's age to complete this topic MENINGOCOCCAL (Group B) VACCINE SHARED DECISION-MAKING Aged Out No longer eligible based on patient's age to complete this topic MENINGOCOCCAL GROUPS A/C/Y/W VACCINE Aged Out No longer eligible based on patient's age to complete this topic PNEUMOCOCCAL VACCINE Aged Out No long er eligible based on patient's age to complete this topic Medical Devices Implanted Type Area Aerial Applicator Pilot Device Identifier Shelf Expiration Date Model / Serial / Lot Stent Evrflx 7mm 40mm Vidhya 3 [place] Slf Implanted:Qty: 1 on 07/21/2022 by Yohana Lewis MD at [facility] Right: Leg [employer] 03/27/2025 [id number] / / [id number] Stent Eprsth 25cm 6mm Hep Ntnl Eptfe - [id number] Implanted:Qty: 1 on 07/21/2022 by Yohana Lewis MD at [facility] Right: Leg [employer] 11/19/2024 [id number] / [id number] / Procedures Procedure Name Priority Date/Time Associated Diagnosis Comments BASIC METABOLIC PANEL (CALCIUM TOTAL) AM Draw 07/24/2022 2:46 AM CDT from Last 3 Months or Most Recently Relevant to Health Maintenance Results * (ABNORMAL) BASIC METABOLIC PANEL (CALCIUM TOTAL) (07/24/2022 2:46 AM CDT) BUN 18 7 - 26 mg/dL 07/24/2022 3:16 AM [facility] Creatinine 0.95 0.56 - 0.96 mg/dL 07/24/2022 3:16 AM [facility] Sodium 137 136 - 145 mmol/L 07/24/2022 3:16 AM [facility] Potassium 4.3 3.5 - 4.5 mmol/L 07/24/2022 3:16 AM [facility] Chloride 107 98 - 107 mmol/L 07/24/2022 3:16 AM [facility] CO2 23 22 - 29 mmol/L 07/24/2022 3:16 AM [facility] Glucose 84 70 - 115 mg/dL 07/24/2022 3:16 AM [facility] Calcium 8.8 8.4 - 10.2 mg/dL 07/24/2022 3:16 AM CDT [facility] Anion Gap 11 8 - 18 07/24/2022 3:16 AM CDT [facility] BUN/Creatinine Ratio 19 7 - 23 07/24/2022 3:16 AM CDT [facility] Osmolality Calculated 285 270 - 300 mOsm/kg 07/24/2022 3:16 AM CDT [facility] eGFR by CKD-EPI 69(L) >=90 mL/min/1.7 3 m2 07/24/2022 3:16 AM T [facility] Blood BLOOD SPECIMEN / Unknown Lab Venipuncture / Unknown 07/24/2022 2:46 AM CDT 07/24/2022 2:51 AM CDT Yohana Lewis MD LAB - CHEMISTRY ORDERABLES Final Result [facility] [address] [place] [address], [facility] [phone] from Last 3 Months or Most Recently Relevant to Health Maintenance [place] [address] [address] ANTH Advance Directives * Full Code (Latest Code Status on File) Date Activated Date Inactivated Comments 07/21/2022 6:10 PM 07/24/2022 3:30 PM * Full Code Date Activated Date Inactivated Comments 10/20/2021 3:40 PM 10/26/2021 10:00 PM * Full Code Date Activated Date Inactivated Comments 10/16/2021 9:44 PM 10/20/2021 3:40 PM * Full Code Date Activated Date Inactivated Comments 10/16/2021 8:17 PM 10/16/2021 9:44 PM Care Teams Digital Analyst Relationship Specialty Start Date End Date Kirt Acevedo MD [address] [place] [phone] PCP - General Family Medicine 10/16/21 Oj Wooten MD [address] [place] [phone] Sports Medicine Trainer Cardiology 11/14/21
--- OUTSIDE RECORDS SUMMARY | 2024-05-17 11:20 | XMS_ITS | Encounter Summary ---
Author Organization [facility] Address [address] [place] [address] Care Team Providers Care Firewall Security Engineer Name Role Phone Kirt Acevedo MD Primary Care Provider [phone] Oj Wooten MD Unavailable Encounter Details Date Type Department Care Team (Late st Contact Info) Description 11/14/2021 Telephone [facility] [address] [place] [phone] Joanna Sparks, VICE PRESIDENT AND PORTFOLIO MANAGER-WRIST HEMMER [address] [place] [address] Social History Tobacco Use Types Packs/Day Years [...] on file Sexual Orientation Not on file COVID-19 Exposure Response Date Recorded In the last 10 days, have yo u been in contact with someone who was confirmed or suspected to have Coronavirus/COVID-19? No / Unsure 10/17/2021 1:48 AM CDT documented as of this encounter Functional Status [...] Entry Date Author No 10/17/2021 2:56 AM CDT Vivienne Means RN documented in this encounter Miscellaneous Notes * Telephone Encounter - Williams Huynh RN - 11/15/2021 10:23 AM CDT Call made to to discuss her change in restrictions. No answer. Left message on voicemail for acall back to the nurse line. 12:36 Call made to to discuss her change in restrictions. No answer. Left message on voicemail for acall back to the nurse line. 13:18 LUCRETIA Castaneda spoke with and states her work is going to re-send her [place] paperwork to vascular surgery office to be completed with the correct information. * Telephone Encounter - Joanna Sparks APRN-TOBI - 11/14/2021 12:29 PM CDT Received call from patient who stated her workplace is unable to accomodate her with current restrictions of: lying down every 2 hours to rest for 15 minutes with legs above the level of the heart. (Restrictions documented on letters section). She said her work will be able to accommodate her resting every 2 hours for 15 minutes sitting in achair with a legs elevated, but that the legs may not always be above the level of the heart. She would like Dr Lewis's permission to change restrictions to this so she can return to work as well as documentation to reflect that. Advised her that I will send message to Dr Lewis and that the office will be in touch. documented in this encounter Plan of Treatment Not on file documented as of this encounter Visit Diagnoses Not on filedocumented in this encounter Care Teams Firewall Security Engineer Relationship Specialty Start Date End Date Kirt Acevedo MD [address] [place] [phone] PCP - General Family Medicine 10/16/21 Oj Wooten MD [address] [place] [phone] Detective Narcotics And Vice Cardiology 11/14/21 documented as of this encounter
[2024-05-17 11:58] LABS: Basophils Absolute Auto 0.07 K/mm3 (0.00-0.10); Basophils Percent Auto 0.4 % (0.0-1.0); Eosinophils Absolute Auto 0.09 K/mm3 (0.02-0.50); Eosinophils Percent Auto 0.5 % (1.0-6.0); Hematocrit 36.9 % (35.0-49.0); Hemoglobin 11.4 g/dL (12.0-15.0); Immature Granulocyte Absolute 0.14 K/mm3 (0.00-0.00); Immature Granulocyte Percent A 0.8 % (0.0-0.0); Lymphocytes Percent Auto 7.6 % (18.0-42.0); Mean Corpuscular HGB Conc 30.9 g/dL (32-36); Mean Corpuscular Hemoglobin 28.4 pg (27.0-31.0); Mean Platelet Volume 10.4 fl (9.2-11.8); Monocytes Absolute Auto 0.94 K/mm3 (0.10-0.90); Monocytes Percent Auto 5.1 % (2.0-11.0); Neutrophils Absolute Auto 15.86 K/mm3 (1.70-7.20); Neutrophils Percent Auto 85.6 % (50.0-70.0); Platelet Count Result 276 K/mm3 (150-420); Red Blood Count 4.01 M/mm3 (4.20-5.40); Red Cell Distribution Width 16.6 % (11.6-14.4); White Blood Count 18.5 K/mm3 (4.8-10.8)
[2024-05-17 11:59] LABS: Add Urine Microscopic? YES; Appearance Urine Clear (Clear); Bilirubin Urine Negative (Negative); Blood Urine Negative (Negative); Color Urine Yellow (Yellow); Glucose Urine UA Negative (Negative); Ketones Urine Negative (Negative); Leukocyte Esterase Ur Negative LEU/UL (Negative); Nitrate Urine Negative (Negative); Protein Urine 1+ (Negative); Specific Grav Ur 1.025 (1.010-1.020); Urobilinogen Urine 0.2 mg/dL (0.2-1.0)
[2024-05-17 12:02] VITALS: BP 121/72; PULSE 109
[2024-05-17 12:03] VITALS: BP 119/74; PULSE 107
[2024-05-17 12:04] VITALS: BP 116/69; PULSE 125
[2024-05-17 12:05] LABS: Bacteria Urine None Seen /hpf; RBC Urine None seen /hpf (0-2); Squamous Epithelial Cell Urine Few /hpf (Few); WBC Urine 0-3 /hpf (0-3)
[2024-05-17 12:12] LABS: Alanine Aminotransferase 34 U/L (14-59); Albumin Level 3.1 g/dL (3.4-5.0); Alkaline Phosphatase 158 U/L (46-116); Anion Gap 8 mmol/L (4-12); Aspartate Amino Transferase 35 U/L (15-37); Bilirubin,Total 0.4 mg/dL (0.00-1.00); Blood Urea Nitrogen 14 mg/dL (7-18); Calcium 8.8 mg/dL (8.5-10.1); Carbon Dioxide 28 mmol/L (21-32); Chloride 105 mmol/L (98-108); Estimated CRCL calculation 51 ml/min; Estimated Glomerular Filt Rate 49; Glucose 128 mg/dL (70-99); INR 0.9; Osmolality Calculated 294 mOsm/kg (285-295); Partial Thromboplastin Time 25.4 Sec (23.9-30.70); Potassium 3.6 mmol/L (3.5-5.1); Prothrombin Time 10.3 Seconds (9.50-12.1); Sodium 141 mmol/L (136-145); Total Protein 7.1 g/dL (6.4-8.2)
[2024-05-17 13:12] VITALS: BP 127/82; PULSE 99; RESP 17; O2SAT 100
--- OUTSIDE RECORDS SUMMARY | 2024-05-17 13:19 | XMS_ITS | Clinical Summary ---
Author Organization [facility] Address [facility] [place] [address] Care Team Providers Care Hydraulic Assembler Name Role Phone Jeyson Mccall PA Unavailable [phone] Allergies No known active allergies Medications aspirin EC (ASPIRIN 81) 81 MG tablet Take 1 tablet (81 mg total) by mouth daily. Active lorazepam 0.5 MG tablet 1 tablet (0.5 mg total) every 8 (eight) hours as needed. 03/13/2019 Active lisinopril 20 MG tablet Take 1 tablet (20 mg total) by mouth daily. Active pantoprazole EC 20 MG tablet Take 2 tablets (40 mg total) by mouth daily. Active Semaglutide (OZEMPIC, 0.25 OR 0.5 MG/DOSE, SC) Inject into the skin once a week. Active famotidine (PEPCID) 40 MG tablet Take 1 tablet (40 mg total) by mouth daily. Active clopidogrel (PLAVIX) 75 MG tablet Take 1 tablet (75 mg total) by mouth daily. Active atorvastatin (LIPITOR) 80 MG tablet Take 1 tablet (80 mg total) by mouth daily. Active Active Problems Problem Noted Date Diagnosed Date Trochanteric bursitis of right hip 10/02/2019 Biceps tendinitis of right shoulder 08/06/2018 Shoulder impingement, right 08/06/2018 Primary osteoarthritis of left knee 08/06/2018 Family History Medical History Relation Comments Cancer Brother Diabetes Maternal Uncle CHF Mother Relation Status Comments Brother Maternal Uncle Mother Social History Tobacco Use Types Packs/Day Years Used Date Smoking Tobacco: Light Smoker Cigarettes Smokeless Tobacco: Never Tobacco Cessation:Ready to Q uit: Not Asked; Counseling Given: Not Answered Alcohol Use Standard Drinks/Week Comments Not Currently 0 (1 standard drink = 0.6 oz pur e alcohol) Comments No Sex and Gender Information Value Date Recorded Sex Assigned at Not on file Legal Sex Female 5:52 PM HYDROGEN CELL TENDER Gender Identity Not on file Sexual Orientation Not on file Last Filed Vital Signs Vital Sign Reading Time Taken Comments Blood Pressure 144/79 01/11/2024 8:20 AM HYDROGEN CELL TENDER Pulse 89 01/11/2024 8:35 AM HYDROGEN CELL TENDER Temperature 36.4 C (97.6 F) 01/11/2024 8:35 AM HYDROGEN CELL TENDER Respiratory Rate 16 01/11/2024 8:35 AM HYDROGEN CELL TENDER Oxygen Saturation 95% 01/11/2024 8:35 AM HYDROGEN CELL TENDER Inhaled Oxygen Concentration - - Weight 95.3 kg (210 lb) 01/11/2024 6:49 AM HYDROGEN CELL TENDER Height 165.1 cm (5' 5 ) 01/11/2024 6:49 AM HYDROGEN CELL TENDER Body Mass Index 34.95 01/11/2024 6:49 AM HYDROGEN CELL TENDER Plan of Treatment Health Maintenance Due Date Last Done Comments Annual Physical 11/04/1966 Hepatitis C 11/04/1981 DTaP, Tdap and Td Vaccines ( 1 - Tdap) 11/04/1982 Mammogram Screening 2003 Zoster Vaccines (1 of 2) 11/04/2013 Pneumococcal Vaccine: Pediatrics (0 to 5 Years) and At-Risk Patients (6 to 64 Years) (2 of 2 - PPSV23 or PCV20) 05/16/2017 03/21/2017 COVID-19 Vaccine (2023-2 5 season) 2023 Colorectal Cancer Screening Colonoscopy (10 Years) 01/10/2034 01/11/2024, 01/11/2024 RSV Immunization or 60+ Years (1 - 1-dose 75+ series) 11/04/2038 Meningococcal B Vaccine Aged Out No l onger eligible based on patient's age to complete this topic Meningococcal Vaccine Aged Out No gladys lorene eligible based on patient's age to complete this topic RSV Immunizations Under 20 Months Aged Out No longer eligible b ased on patient's age to complete this topic Procedures Procedure Name Priority Date/Time Associated Diagnosis Comments COLONOSCOPY 01/11/2024 7:22 AM HYDROGEN CELL TENDER from Last 3 Months or Most Recently Relevant to Health Maintenance Results * Colonoscopy (01/11/2024 7:22 AM HYDROGEN CELL TENDER) Alfredo Owens MD GI PROCEDURE ORDERABLES Final Result from Last 3 Months or Most Recently Relevant to Health Maintenance Insurance [facility] Care Teams Hydraulic Assembler Relationship Specialty Start Date End Date Jeyson Mccall PA [address] [place] [phone] Physician Vein Access Technician PHYSICIAN BUILD ENGINEER 11/27/18
--- OUTSIDE RECORDS SUMMARY | 2024-05-17 13:19 | XMS_ITS | Clinical Summary ---
Author Organization [facility] Address [address] [place] [address] Phone Care Team Providers Care Cutter V Groove Name Role Phone Kirt Acevedo MD Primary Care Provider [phone] Allergies No known active allergies Medications metoprolol [...] Inactivated Comments 11/08/2021 10:07 AM Care Teams Cutter V Groove Relationship Specialty Start Date End Date Kirt Acevedo MD [address] [place] [address] PCP - General Family Medicine 09/07/21
--- OUTSIDE RECORDS SUMMARY | 2024-05-17 13:20 | XMS_ITS | Encounter Summary ---
Author Organization [facility] Address [facility] [place] [address] Care Team Providers Care Flying Ii Instructor Name Role Phone Angelica Asencio MD Primary Care Provider [phone] Kirt Acevedo MD Primary Care Provider [phone] Jeyson Mccall Unavailable [phone] Kate Gomez MD Primary Care Provider + [phone] Encounter Details Date Type Department Care Team (Late st Contact Info) Description 07/13/2018 Abstract [facility] CONVERSION [address] [place], [place] [id number] , Generic Conversion, Social History Tobacco Use Types Packs/Day Years Used Date Smoking Tobacco: Never Assessed Comments Unknown Sex and Gender Information Value Date Recorded Sex Assigned at Not on file Legal Sex Female 5:52 PM BLANKET WINDER HELPER Gender Identity Not on file Sexual Orientation Not on file documented as of this encounter Plan of Treatment Not on file documented as of this encounter Visit Diagnoses Not on filedocumented in this encounter Care Teams Flying Ii Instructor Relationship Specialty Start Date End Date Angelica Asencio MD [address] [place] [phone] PCP - General FAMILY PRACTICE 08/05/18 11/26/18 Kirt Acevedo MD [address] [place] [phone] PCP - General FAMILY PRACTICE 11/27/18 01/10/24 Kate Gomez MD [address] [facility] [place] [address] PCP - General FAMILY PRACTICE 01/11/24 01/11/24 Jeyson Mccall PA [address] [place] [phone] Physician Supervisor Cigarette Making Department PHYSICIAN SAP BW ARCHITECT 11/27/18 documented as of this encounter
--- OUTSIDE RECORDS SUMMARY | 2024-05-17 13:20 | XMS_ITS | Encounter Summary ---
Author Organization [facility] Address [address] [place] [address] Care Team Providers Care Golf Club Repairer Name Role Phone Kirt Acevedo MD Primary Care Provider [phone] Oj Wooten MD Unavailable Encounter Details Date Type Department Care Team (Late st Contact Info) Description 11/14/2021 Telephone [facility] [address] [place] [phone] Joanna Sparks, DRUPAL DEVELOPER-DIRECTOR OF CLOUD SERVICES [address] [place] [address] Social History Tobacco Use Types Packs/Day Years [...] on filedocumented in this encounter Care Teams Golf Club Repairer Relationship Specialty Start Date End Date Kirt Acevedo MD [address] [place] [phone] PCP - General Family Medicine 10/16/21 Oj Wooten MD [address] [place] [phone] River Rat Cardiology 11/14/21 documented as of this encounter
--- OUTSIDE RECORDS SUMMARY | 2024-05-17 13:20 | XMS_ITS | Encounter Summary ---
Author Organization [facility] Address [address] [place] [address] Care Team Providers Care Jewelry Sales Coordinator Name Role Phone Kirt Acevedo MD Primary Care Provider [phone] Oj Wooten MD Unavailable Reason for Visit * Reason Onset Date Comments MEDICATION REFILL 12/21/2021 Encounter Details Date Type Department Care Team (Late st Contact Info) Description 12/21/2021 Refill [facility] [address] [place] [address], [place] [address] Yohana Lewis MD [address] [place] [address] [place] [address] MEDICATION REFILL Social History Tobacco [...] on filedocumented in this encounter Care Teams Jewelry Sales Coordinator Relationship Specialty Start Date End Date Kirt Acevedo MD [address] [place] [phone] PCP - General Family Medicine 10/16/21 Oj Wooten MD [address] [place] [phone] Configuration Management Administrator Cardiology 11/14/21 documented as of this encounter
--- OUTSIDE RECORDS SUMMARY | 2024-05-17 13:20 | XMS_ITS | Clinical Summary ---
Author Organization [facility] Address [address] [place] [address] Care Team Providers Care Subway Conductor Name Role Phone Kirt Acevedo MD Primary Care Provider [phone] Oj Wooten MD Unavailable Source Comments [facility],non-owned Affiliates and Associated Physician Practices is amultiple site organization consisting of ambulatory clinics and hospital sitesin [place], [place], [place] and [place]. This disclosure is being madepursuant to the Care Everywhere program and may not contain all information available regarding this patient. Last updated 17.[facility] Allergies No known active allergies Medications * [...] medical care, and heating? Somewhat hard 07/22/2022 [facility] - Occupational Stress [...] place to sleep or slept in a mcfp (including now)? No 07/22/2022 Comments No Sex [...] this topic Medical Devices Implanted Type Area Cook Larder Device Identifier Shelf Expiration Date Model / Serial / Lot Stent Evrflx 7mm 40mm Vidhya 3 [place] Peak Slf Implanted:Qty: 1 on 07/21/2022 by Yohana Lewis MD at [facility] Right: Leg [employer] 03/27/2025 [id number] / / [id number] Stent Eprsth 25cm 6mm Hep Ntnl Eptfe - [id number] Implanted:Qty: 1 on 07/21/2022 by Yohana Lewis MD at [facility] Right: Leg [employer] 11/19/2024 [id number] / [id number] / Procedures Procedure Name Priority Date/Time Associated Diagnosis Comments BASIC METABOLIC PANEL (CALCIUM TOTAL) AM Draw 07/24/2022 2:46 AM CDT from Last 3 Months or Most Recently Relevant to Health Maintenance Results * (ABNORMAL) BASIC METABOLIC PANEL (CALCIUM TOTAL) (07/24/2022 2:46 AM CDT) BUN 18 7 - 26 mg/dL 07/24/2022 3:16 AM [facility] Creatinine 0.95 0.56 - 0.96 mg/dL 07/24/2022 3:16 AM [facility] Sodium 137 136 - 145 mmol/L 07/24/2022 3:16 AM [facility] Potassium 4.3 3.5 - 4.5 mmol/L 07/24/2022 3:16 AM [facility] Chloride 107 98 - 107 mmol/L 07/24/2022 3:16 AM [facility] CO2 23 22 - 29 mmol/L 07/24/2022 3:16 AM [facility] Glucose 84 70 - 115 mg/dL 07/24/2022 3:16 AM [facility] Calcium 8.8 8.4 - 10.2 mg/dL 07/24/2022 3:16 AM CDT [facility] Anion Gap 11 8 - 18 07/24/2022 3:16 AM CDT [facility] BUN/Creatinine Ratio 19 7 - 23 07/24/2022 3:16 AM CDT [facility] Osmolality Calculated 285 270 - 300 mOsm/kg 07/24/2022 3:16 AM CDT [facility] eGFR by CKD-EPI 69(L) >=90 mL/min/1.7 3 m2 07/24/2022 3:16 AM T [facility] Blood BLOOD SPECIMEN / Unknown Lab Venipuncture / Unknown 07/24/2022 2:46 AM CDT 07/24/2022 2:51 AM CDT Yohana Lweis MD LAB - CHEMISTRY ORDERABLES Final Result [facility] [address] [place] [address], [facility] [phone] from Last 3 Months or Most Recently Relevant to Health Maintenance [place] [address] [address] ANTH Advance Directives * Full Code (Latest [...] 8:17 PM 10/16/2021 9:44 PM Care Teams Subway Conductor Relationship Specialty Start Date End Date Kirt Acevedo MD [address] [place] [phone] PCP - General Family Medicine 10/16/21 Oj Wooten MD [address] [place] [phone] Manager Cafe Cardiology 11/14/21
[2024-05-17 13:55] VITALS: BP 143/81; PULSE 98; RESP 17; TEMP 36.8; O2SAT 100
== END 2024-05-17 13:55 | disposition home or self-care (01) ==
PROVIDERS: Emergency Provider Emergency Medicine; PCP Family Medicine
DX: N93.9 Abnormal uterine and vaginal bleeding, unspecified (principal); I10 Essential (primary) hypertension; E11.9 Type 2 diabetes mellitus without complications; Z79.01 Long term (current) use of anticoagulants
CPT/HCPCS: 36415; 74177; 80053; 81001; 85025; 85610; 85730; 99284; Q9967

== ENCOUNTER 2024-07-26 14:10 | Outpatient (CLI) | payer BC, SELFPAY ==
--- NOTE | 2024-07-26 | CONSULT_PTH ---
PATIENT: Mary Jay LOC: [facility] U#:[id number] AGE/SX: 58/F ROOM: RE07/26/[address]: Kate Gomez, : 1965 BED: DIS: 07/26/2024 SPEC #: [id number] RECD: 07/26/24 14:29 STATUS: LALI REQ #: [id number] MERLYN: 07/26/24 00:[address]: Patricia,Kate Angeles DEPT: [facility] Consult RECD BY: Zunilda Gilbert MLT, ([facility]) Tissues: A - Peripheral Smear Procedures: Hematology Consult
[2024-07-26 14:27] LABS: Basophils Absolute Auto 0.07 K/mm3 (0.00-0.10); Basophils Percent Auto 0.5 % (0.0-1.0); Eosinophils Absolute Auto 0.23 K/mm3 (0.02-0.50); Eosinophils Percent Auto 1.7 % (1.0-6.0); Hematocrit 32.8 % (35.0-49.0); Hemoglobin 9.7 g/dL (12.0-15.0); Immature Granulocyte Absolute 0.07 K/mm3 (0.00-0.00); Immature Granulocyte Percent A 0.5 % (0.0-0.0); Lymphocytes Absolute Auto 1.57 K/mm3 (1.10-4.50); Lymphocytes Percent Auto 11.6 % (18.0-42.0); Mean Corpuscular HGB Conc 29.6 g/dL (32-36); Mean Corpuscular Hemoglobin 24.5 pg (27.0-31.0); Mean Corpuscular Volume 82.8 fL (78.0-102.0); Monocytes Absolute Auto 0.72 K/mm3 (0.10-0.90); Monocytes Percent Auto 5.3 % (2.0-11.0); Neutrophils Absolute Auto 10.91 K/mm3 (1.70-7.20); Neutrophils Percent Auto 80.4 % (50.0-70.0); Platelet Count Result 369 K/mm3 (150-420); Red Blood Count 3.96 M/mm3 (4.20-5.40); Red Cell Distribution Width 16.7 % (11.6-14.4); White Blood Count 13.6 K/mm3 (4.8-10.8)
[2024-07-26 14:33] LABS: Hemoglobin A1C 6.6 % (<5.7)
[2024-07-26 14:58] LABS: Alanine Aminotransferase 16 U/L (6-35); Albumin Level 3.8 g/dL (3.5-5.1); Alkaline Phosphatase 132 U/L (38-126); Anion Gap 7 mmol/L (4-12); Aspartate Amino Transferase 23 U/L (14-36); Bilirubin,Total 0.6 mg/dL (0.2-1.3); Blood Urea Nitrogen 11 mg/dL (7-17); Carbon Dioxide 24 mmol/L (22-30); Chloride 107 mmol/L (98-107); Cholesterol 93 mg/dL (0-200); Estimated Glomerular Filt Rate 57; Glucose 144 mg/dL (65-110); HDL Direct 43 mg/dL; Iron 39 ug/dL (37-170); LDL Cholesterol Calculated 29 mg/dL (<130); Osmolality Calculated 288 mOsm/kg (285-295); Potassium 4.1 mmol/L (3.4-5.0); Sodium 138 mmol/L (137-145); Total Protein 6.5 g/dL (6.3-8.2); Triglycerides 104 mg/dL (<150)
[2024-07-26 15:07] LABS: Percent Iron Saturation 9 % (20-50)
[2024-07-26 15:15] LABS: Vitamin D 25 Hydroxy 30.9 ng/mL
== END 2024-07-26 14:11 | disposition home or self-care (01) ==
PROVIDERS: PCP Family Medicine; Visit Provider Family Medicine
DX: E78.00 Pure hypercholesterolemia, unspecified (principal); E53.8 Deficiency of other specified B group vitamins; E55.9 Vitamin D deficiency, unspecified; K21.9 Gastro-esophageal reflux disease without esophagitis; E11.8 Type 2 diabetes mellitus with unspecified complications
CPT/HCPCS: 36415; 80053; 80061; 82306; 82607; 82746; 83036; 83540; 83550; 85025

== ENCOUNTER 2024-12-02 11:46 | Outpatient (CLI) | payer BC, SELFPAY ==
--- NOTE | 2024-12-02 11:52 | ECHO_ITS ---
Patient Info Name: Mary Jay Age: 59 years : 1965 Gender: Female Ht: 65 in Wt: 208 lbs BSA: 2.12 m2 HR: 77 bpm BP: 178 / 118 mmHg Technical Quality: Good Exam Date: 12/02/2024 11:59 AM Patient Status: O Admit Date: 12/02/2024 Exam Type: CA echo doppler color flow Complete two-dimensional, color flow and Doppler transthoracic echocardiogram is performed. [employer] Cement [place]oulder: Kely Gutierres Attending Provider: Kate Gomez Summary 1. Complete two-dimensional, color flow and Doppler transthoracic echocardiogram is performed. 2. Left ventricular chamber dimension is normal. 3. Left ventricular systolic function is normal, estimated at 55-60. 4. There is moderate concentric increased left ventricular wall thickness. 5. The left ventricular diastolic function is grade I diastolic dysfunction. 6. E/e' 9 is minimally elevated. 7. There is mild aortic valve sclerosis. 8. The mitral valve has a mildly calcified annulus. Left Ventricle E/e' 9 is minimally elevated. Left ventricular chamber dimension is normal. Left ventricular systolic function is normal, estimated at 55-60. There is moderate concentric increased left ventricular wall thickness. The left ventricular diastolic function is grade I diastolic dysfunction. Right Ventricle Right ventricular chamber dimension is normal. Right ventricular systolic function is normal and with normal TAPSE 1.9 cm. Left Atria Left atrial chamber dimension is normal. Right Atria Right atrial chamber dimension is normal. Aortic Valve The aortic valve is trileaflet. There is mild aortic valve sclerosis. There is no aortic valve stenosis. There is no aortic valve regurgitation. Pulmonic Valve There is no pulmonic regurgitation. Mitral Valve The mitral valve has a mildly calcified annulus. There is no mitral valve stenosis. There is no mitral valve regurgitation. Tricuspid Valve There is no tricuspid valve regurgitation. Pericardium/Pleural There is no pericardial effusion. Inferior Vena Cava Normal inferior vena cava with >50% collapse upon inspiration consistent with normal right atrial pressure, 5 mmHg. Aorta The aortic root size at the sinus of Valsalva is normal. Left Ventricular Outflow Tract Name Value Normal LVOT 2D LVOT Diameter 2.0 cm LVOT Doppler LVOT Peak Velocity 95 cm/s LVOT Peak Gradient 4 mmHg LVOT Mean Gradient 2 mmHg LVOT VTI 20 cm LVOT Stroke Volume 64 ml LVOT CO 4.9 l/min LVOT CI 2.3 l/min/m2 Pulmonic Valve Name Value Normal RVOT Doppler RVOT Peak Velocity 75 cm/s RVOT Peak Gradient 2 mmHg PV Doppler PV Peak Velocity 93 cm/s PV Peak Gradient 3 mmHg Mitral Valve Name Value Normal MV Diastolic Function MV E Peak Velocity 50 cm/s MV A Peak Velocity 61 cm/s MV E/A 0.8 MV Decel Time (PW) 143 ms MV Annular TDI MV E/e' (Septal) 9.6 MV E/e' (Lateral) 8.8 MV E/e' (Average) 9.2 Tricuspid Valve Name Value Normal Estimated PAP/RSVP RA Pressure 5 mmHg <=5 Aortic Valve Name Value Normal AV Doppler AV Peak Velocity 122 cm/s AV Peak Gradient 6 mmHg AV Area (Cont Eq Abel) 2.5 cm2 AV DI (Abel) 0.78 AV Regurgitation 2D LVOT Area 3.2 cm2 Ventricles Name Value Normal LV Dimensions 2D/MM IVS Diastolic Thickness (2D) 1.0 cm 0.6-1.0 LVID Diastole (2D) 4.7 cm 3.8-5.2 LVIW Diastolic Thickness (2D) 0.9 cm 0.6-0.9 LVID Systole (2D) 3.4 cm 2.2-3.5 LVOT Diameter 2.0 cm LV Mass (2D Cubed) 150.12 g 67.00-162.00 LV Mass Index (2D Cubed) 71 g/m2 43-95 Relative Wall Thickness (2D) 0.37 <=0.42 LV Fractional Shortening/Ejection Fraction 2D/MM LV Fractional Shortening (2D) 27 % 27-45 LV EF (2D Teichholz) 53 % LV Diastolic Volume (4C MOD) 111 ml LV EF (4C MOD) 59 % LV Diastolic Volume (2C MOD) 84 ml LV EF (2C MOD) 66 % LV Diastolic Volume (BP MOD) 96 ml 46-106 LV Diastolic Volume Index (BP MOD) 45 ml/m2 29-61 LV Systolic Volume (BP MOD) 45 ml 14-42 LV Systolic Volume Index (BP MOD) 21 ml/m2 8-24 LV EF (BP MOD) 53 % 54-74 LV Diastolic Length (4C) 8.3 cm LV Systolic Length (4C) 6.6 cm LV Stroke Volume (4C MOD) 66 ml Atria Name Value Normal LA Dimensions LA Volume (4C A-L) 32 ml LA Volume (BP A-L) 37 ml RA Dimensions RA Systolic Major Buhl Length (4C) 5.0 cm 2.2-2.8 RA Area (4C) 9.4 cm2 <=18.0 Report Signatures
--- OUTSIDE RECORDS SUMMARY | 2024-12-02 13:50 | XMS_ITS | Clinical Summary ---
Author Organization [facility] Address [address] [place] [address] Care Team Providers Care Entrepreneurial Finance Professor Name Role Phone Kirt Acevedo MD Primary Care Provider [phone] Oj Wooten MD Unavailable Source Comments [facility],non-owned Affiliates and Associated Physician Practices is amultiple site organization consisting of ambulatory clinics and hospital sitesin [place], [place], [place] and [place]. This disclosure is being madepursuant to the Care Everywhere program and may not contain all information available regarding this patient. Last updated 17.[facility] Allergies No known active allergies Medications * [...] medical care, and heating? Somewhat hard 07/22/2022 [facility] of Occupat ional Health - Occupational Stress [...] place to sleep or slept in a assisted (including now)? No 07/22/2022 Comments No Sex [...] 10:17 AM CDT Height 162.6 cm (5' 4) 08/30/2022 10:17 AM CDT Body Mass Index [...] - COLON CA SCREENING 1965 MAMMOGRAM 1965 HIV SCREENING 11/04/1978 HEPATITIS C SCREENING 10/31/1981 DTAP/TDAP/TD VACCINES (1 - Tdap) 11/04/1982 PNEUMOCOCCAL VACCINE 50+ (1 of 1 - PCV) 11/04/2013 ZOSTER VACCINE (1 of 2) 11/04/2013 Respiratory Syncytial Virus (RSV) Vaccine Pt: or over 60 yrs (1 - Risk 60-74 years 1-dose series) 2023 DEPRESSION SCREENING 02/06/2024 COVID-19 VACCINE ( - season) 2024 INFLUENZA VACCINE (#1) 2024 SCREENING FOR DIABETES 07/24/2025 3, 07/23/2022, 07/22/2022, Additional history exists HEPATITIS B VACCINE Aged Out No longe [...] this topic Medical Devices Implanted Type Area Collection Supervisor Device Identifier Shelf Expiration Date Model / Serial / Lot Stent Evrflx 7mm 40mm Vidhya 3 [place] Peak Slf Implanted:Qty: 1 on 07/21/2022 by Yohana Lewis MD at [facility] Right: Leg [employer] 03/27/2025 [id number] / / [id number] Stent Eprsth 25cm 6mm Hep Ntnl Eptfe - [id number] Implanted:Qty: 1 on 07/21/2022 by Yohana Lewis MD at [facility] Right: Leg [employer] 11/19/2024 [id number] / [id number] / Procedures Procedure Name Priority Date/Time Associated Diagnosis Comments BASIC METABOLIC PANEL (CALCIUM TOTAL) AM Draw 07/24/2022 2:46 AM CDT from Last 3 Months or Most Recently Relevant to Health Maintenance Results * (ABNORMAL) BASIC METABOLIC PANEL (CALCIUM TOTAL) (07/24/2022 2:46 AM CDT) BUN 18 7 - 26 mg/dL 07/24/2022 3:16 AM [facility] Creatinine 0.95 0.56 - 0.96 mg/dL 07/24/2022 3:16 AM [facility] Sodium 137 136 - 145 mmol/L 07/24/2022 3:16 AM [facility] Potassium 4.3 3.5 - 4.5 mmol/L 07/24/2022 3:16 AM [facility] Chloride 107 98 - 107 mmol/L 07/24/2022 3:16 AM [facility] CO2 23 22 - 29 mmol/L 07/24/2022 3:16 AM [facility] Glucose 84 70 - 115 mg/dL 07/24/2022 3:16 AM [facility] Calcium 8.8 8.4 - 10.2 mg/dL 07/24/2022 3:16 AM [facility] Anion Gap 11 8 - 18 07/24/2022 3:16 AM CDT [facility] BUN/Creatinine Ratio 19 7 - 23 07/24/2022 3:16 AM T [facility] Osmolality Calculated 285 270 - 300 mOsm/kg 07/24/2022 3:16 AM T [facility] eGFR by CKD-EPI 69(L) >=90 mL/min/1.7 3 m2 07/24/2022 3:16 AM T [facility] Blood BLOOD SPECIMEN / Unknown Lab Venipuncture / Unknown 07/24/2022 2:46 AM CDT 07/24/2022 2:51 AM CDT Yohana Lewis MD LAB - CHEMISTRY ORDERABLES Final Result [facility] [address] [place] [address], [facility] [phone] from Last 3 Months or Most Recently Relevant to Health Maintenance Insurance ANTHEM ANTHEM Member Subscriber Plan / Payer (Ef fective 2021-Present) Name:Eligio Magaña Relation to Subscriber:Self Name:ELIGIO MAGAÑA Payer ID:[id number] (NAIC) Type:PPO Address: [facility] [id number] [place] [id number] Advance Directives * Full Code (Latest Code [...] 8:17 PM 10/16/2021 9:44 PM Care Teams Entrepreneurial Finance Professor Relationship Specialty Start Date End Date Kirt Acevedo MD [address] [place] [phone] PCP - General Family Medicine 10/16/21 Oj Wooten MD [address] [place] [phone] Finance Broker Cardiology 11/14/21
--- OUTSIDE RECORDS SUMMARY | 2024-12-02 13:50 | XMS_ITS | Encounter Summary ---
Author Organization [facility] Address [address] [place] [address] Care Team Providers Care Teacher Drama Name Role Phone Kirt Acevedo MD Primary Care Provider [phone] Oj Wooten MD Unavailable Reason for Visit * Reason Onset Date Comments MEDICATION REFILL 12/21/2021 Encounter Details Date Type Department Care Team (Late st Contact Info) Description 12/21/2021 Refill [facility] [address] [place] [address], [place] [address] Yohana Lewis MD [address] [place] [address] [place] [address] MEDICATION REFILL Social History Tobacco [...] on filedocumented in this encounter Care Teams Teacher Drama Relationship Specialty Start Date End Date Kirt Acevedo MD [address] [place] [phone] PCP - General Family Medicine 10/16/21 Oj Wooten MD [address] [place] [phone] [employer] Cardiology 11/14/21 documented as of this encounter
--- OUTSIDE RECORDS SUMMARY | 2024-12-02 13:50 | XMS_ITS | Encounter Summary ---
Author Organization [facility] Address [address] [place] [address] Care Team Providers Care Release Manager Name Role Phone Kirt Acevedo MD Primary Care Provider [phone] Oj Wooten MD Unavailable Encounter Details Date Type Department Care Team (Late st Contact Info) Description 11/14/2021 Telephone [facility] [address] [place] [phone] Joanna Sparks, [employer] P[employer] MACHINIST [address] [place] [address] Social History Tobacco Use Types Packs/Day Years [...] on filedocumented in this encounter Care Teams Release Manager Relationship Specialty Start Date End Date Kirt Acevedo MD [address] [place] [phone] PCP - General Family Medicine 10/16/21 Oj Wooten MD [address] [place] [phone] Counseling Aide Cardiology 11/14/21 documented as of this encounter
--- OUTSIDE RECORDS SUMMARY | 2024-12-02 13:50 | XMS_ITS | Clinical Summary ---
Author Organization [facility] Address [address] [place] [address] Phone Care Team Providers Care Direct Response Consultant Name Role Phone Kirt Acevedo MD Primary Care Provider [phone] Allergies No known active allergies Medications metoprolol [...] 10:43 AM CDT Height 165.1 cm (5' 5) 11/01/2021 1:20 PM CDT Body Mass Index 34.78 10/28/2021 10:43 AM CDT Plan of Treatment Health Maintenance Due Date Last Done Comments Hepatitis C Virus (HCV) Screening 1965 TdaP Immunization 1965 Pap Smear 11/04/1984 Cervical Cancer Screening (CCS) 11/04/1993 HPV/Cotest 11/04/1993 Cologuard 11/04/2008 Colonoscopy 11/04/2008 Colorectal Cancer Screening 11/04/2008 Immunochemical Fecal Occult Blood 11/04/2008 Zoster Immunization (1 of 2) 11/04/2013 Pneumococcal Immunization (50+ years) (2 of 2 - PCV20 or PCV21) 03/21/2018 03/21/2017 Influenza Immunization (#1) 10/06/202411/07, 10/16/2019, 11/21/2018, Additional history exists SARS-COV-2 Immunization ( season) 2024 12/05/2020, 04/02/2020, 03/12/2020 Respiratory Syncytial Virus (RSV) Immunization (Adult) (1 - 1-dose 75+ series) 11/04/2038 Pneumococcal Immunization Combined Discontinued 03/21/2017 Hepatitis B Immunization Aged Out No longer eligible based on patient's age to complete this topic Human Papillomavirus (HPV) Immunization Aged Out No longer eligible based [...] Inactivated Comments 11/08/2021 10:07 AM Care Teams Direct Response Consultant Relationship Specialty Start Date End Date Kirt Acevedo MD [address] [place] [address] PCP - General Family Medicine 09/07/21
== END 2024-12-02 11:47 | disposition home or self-care (01) ==
PROVIDERS: PCP Family Medicine; Visit Provider Family Medicine
DX: R06.09 Other forms of dyspnea (principal); I05.9 Rheumatic mitral valve disease, unspecified
CPT/HCPCS: 93306